=== PATIENT | female | born 1960 | race African-American/Black ===

== ENCOUNTER 2017-02-02 21:39 | Emergency (ER) | payer MEDICARE ==
[~2017-02-02] VITALS: Ht 175.3 cm; Wt 119.5 kg
[~2017-02-02 21:39] MED LIST: ACTOS 15MG TAB15 MG PO; AMBIEN 10MG10 MG PO; BENZTROPINE1 MG PO; CEFTIN 250250 MG/TAB PO; COGENTIN 1MG1 MG/TAB PO; DIABETA 5MG5 MG/TAB PO; FLUPHENAZINE HYD PO; FLUPHENAZINE IM; FOLIC ACID PO; FORTAMET1000 MG PO; GLUCOPHAGE500 MG/TAB PO; HALDOL 5MG T5 MG/TAB PO; INSULIN ASPART SQ; INVEGA3 MG PO; JANUMET 1000 MG1 TA1 PO; LAMISIL250 MG PO; LASIX20 MG PO; LEVAQUIN500 MG PO; LIPITOR40 MG PO; MVI PO; NAVANE PO; NOVALOG FLEX PEN SQ; POTASSIUM CH2 MEQ/ML PO; PRAVACHOL 40MG40 MG PO; PRINIVIL5 MG PO; PROZAC 20MG20 MG PO; RISPERDAL CONSTA IM; RISPERDAL3 MG PO; SAPHRIS10 MG SL; SEROQUEL100 MG PO; SEROQUEL300 MG PO; TRAZODONE HCL100 MG PO; UNABLE; VASOTEC 2.2.5 MG/TAB PO; VISTARIL 2525 MG/CAP PO; ZITHROMAX500 M2 PO; ZOCOR 20MG20 MG PO; ZOFRAN ODT4 MG PO; ZOLOFT100 MG PO
[2017-02-02 22:06] VITALS: TEMP 98.3
[2017-02-03 00:10] LABS: BASO % 0.6 % (0.0-2.0); EOS # 0.3 (0.0-0.7); EOS % 3.6 % (0-4.0); GRAN % 56.7 % (42.2-75.2); HEMATOCRIT 31.4 % (37.0-47.0); HEMOGLOBIN 10.6 g/dl (12.5-16.0); LYMPH # 2.2 (1.2-3.4); LYMPH % 30.7 % (20.0-51.0); MEAN CELL VOLUME 84 fl (80.0-100.0); MEAN CORPUSCULAR HEMOGLOBIN 28 pg (27.0-31.0); MEAN CORPUSCULAR HGB CONC 34 g/dl (33.0-37.0); MEAN PLATELET VOLUME 11.3 fl (7.4-10.4); MONO # 0.6 (0.1-0.6); MONO % 8.3 % (1.7-9.3); PLATELET COUNT 266 K/mm3 (130-400); RED BLOOD COUNT 3.74 M/mm3 (4.10-5.30); REDCELL DISTRIBUTION WIDTH-CV 12.3 % (11.5-14.5)
[2017-02-03 00:20] LABS: ADJUSTED CALCIUM 9.6 mg/dL (8.4-10.2); BILIRUBIN,TOTAL 0.4 mg/dL (0.0-1.0); CALCIUM 9.6 mg/dL (8.4-10.2); CREATININE, serum 1.36 mg/dL (0.52-1.25); MAGNESIUM 1.7 mg/dL (1.6-2.3); PHOSPHOROUS 4.3 mg/dL (2.5-4.5); POTASSIUM 4.8 mmol/L (3.4-5.0); TOTAL PROTEIN 7.3 gm/dL (6.4-8.2)
[2017-02-03 01:56] VITALS: BP 172/90; PULSE 92
== END 2017-02-03 02:15 | disposition home or self-care (01) ==
LOC: COL.ER 21:39
PROVIDERS: Emergency Medicine
DX: E11.40 Type 2 diabetes mellitus with diabetic neuropathy, unspecified (principal); E11.43 Type 2 diabetes mellitus with diabetic autonomic (poly)neuropathy; E11.65 Type 2 diabetes mellitus with hyperglycemia; K31.84 Gastroparesis; M79.605 Pain in left leg; M79.604 Pain in right leg; Z79.84 Long term (current) use of oral hypoglycemic drugs; F20.9 Schizophrenia, unspecified
CPT/HCPCS: J1170; J1815; J2405; J7030

== ENCOUNTER 2017-05-24 17:28 | Emergency (ER) | payer MEDICARE ==
[~2017-05-24] VITALS: Ht 175.3 cm; Wt 111.4 kg
[2017-05-24 17:46] VITALS: TEMP 99.2
[2017-05-24 18:22] LABS: COLLECTION METHOD CLEAN CATCH
[2017-05-24 18:47] LABS: PH 6 (5-8); SQUAMOUS EPITHELIAL 0-2 /hpf; URINE APPEARANCE Clear; URINE BACTERIA None Seen /hpf; URINE BILIRUBIN Negative (NEGATIVE); URINE BLOOD 2+ (NEGATIVE); URINE COLOR Colorless; URINE GLUCOSE 3+ (NEGATIVE); URINE KETONE Negative (NEGATIVE); URINE LEUKOCYTE ESTERASE 2+ (NEGATIVE); URINE PROTEIN(semi-quant) 1+ (NEGATIVE); URINE UROBILINOGEN Negative (NEGATIVE)
[2017-05-24 18:48] LABS: URINE WBC 20-50 /hpf
[2017-05-24] MEDS ORDERED: PYRIDIUM200 M1 PO (18:54)
[2017-05-24] MEDS ORDERED: CEFTIN500 MG PO (18:54)
[2017-05-24 19:10] VITALS: BP 138/71; PULSE 94
== END 2017-05-24 19:10 | disposition home or self-care (01) ==
LOC: COL.ER 17:28
PROVIDERS: Emergency Medicine
DX: N39.0 Urinary tract infection, site not specified (principal); I10 Essential (primary) hypertension; E11.9 Type 2 diabetes mellitus without complications; F20.9 Schizophrenia, unspecified; F17.210 Nicotine dependence, cigarettes, uncomplicated; Z98.51 Tubal ligation status

== ENCOUNTER → 2017-08-20 | Outpatient (CLI) | payer MEDICARE ==
[~2017-08-20] MED LIST changes: +CEFTIN500 MG PO; +PYRIDIUM200 M1 PO
== END ==
LOC: SUN.DIA 12:54
DX: E11.9 Type 2 diabetes mellitus without complications (principal); E66.9 Obesity, unspecified; Z68.37 Body mass index [BMI] 37.0-37.9, adult; Z71.3 Dietary counseling and surveillance; F17.220 Nicotine dependence, chewing tobacco, uncomplicated
CPT/HCPCS: G0108

== ENCOUNTER 2017-10-06 22:47 | Emergency (ER) | payer MEDICARE ==
[~2017-10-06] VITALS: Ht 175.3 cm; Wt 115.0 kg
[2017-10-06 22:50] VITALS: TEMP 97.5
[2017-10-06 23:11] LABS: BASO % 0.5 % (0.0-2.0); EOS # 0.2 (0.0-0.7); EOS % 2.7 % (0-4.0); GRAN # 4.5 (1.4-6.5); GRAN % 58.9 % (42.2-75.2); LYMPH # 2.2 (1.2-3.4); MEAN CELL VOLUME 83 fl (80.0-100.0); MEAN CORPUSCULAR HGB CONC 34 g/dl (33.0-37.0); MEAN PLATELET VOLUME 11.2 fl (7.4-10.4); MONO # 0.7 (0.1-0.6); MONO % 8.8 % (1.7-9.3); PLATELET COUNT 242 K/mm3 (130-400); RED BLOOD COUNT 3.43 M/mm3 (4.10-5.30); REDCELL DISTRIBUTION WIDTH-CV 12.4 % (11.5-14.5)
[2017-10-06 23:12] LABS: HEMATOCRIT 28.4 % (37.0-47.0); HEMOGLOBIN 9.5 g/dl (12.5-16.0); MEAN CORPUSCULAR HEMOGLOBIN 28 pg (27.0-31.0)
[2017-10-06 23:24] LABS: ACETONE,SERUM NEGATIVE; ALANINE AMINOTRANSFERASE 29 U/L (9-52); ALBUMIN 3.2 gm/dL (3.5-5.0); ALKALINE PHOSPHATASE 75 U/L (50-136); ANION GAP 12 mmol/L (7-16); AST,SGOT 15 U/L (15-37); BILIRUBIN,TOTAL 0.2 mg/dL (0.0-1.0); BLOOD UREA NITROGEN 15 mg/dL (7-17); CALCIUM 8.2 mg/dL (8.4-10.2); CARBON DIOXIDE 23 mmol/L (22-30); CHLORIDE 102 mmol/L (98-107); CREATININE, serum 1.05 mg/dL (0.52-1.25); GLUCOSE 356 mg/dL (74-106); POTASSIUM 3.2 mmol/L (3.4-5.0); SODIUM 136 mmol/L (137-145); TOTAL PROTEIN 6.3 gm/dL (6.4-8.2)
[2017-10-07] MEDS ORDERED: LATUDA20 MG PO (00:10)
[2017-10-07 00:28] VITALS: BP 154/90; PULSE 91
== END 2017-10-07 00:30 | disposition home or self-care (01) ==
LOC: COL.ER 22:47
PROVIDERS: Emergency Medicine
DX: E11.9 Type 2 diabetes mellitus without complications (principal); R21 Rash and other nonspecific skin eruption; I10 Essential (primary) hypertension; F20.9 Schizophrenia, unspecified; F17.210 Nicotine dependence, cigarettes, uncomplicated; Z91.19 Patient's noncompliance with other medical treatment and regimen; Z79.84 Long term (current) use of oral hypoglycemic drugs
CPT/HCPCS: J1200; J2550; J7030

== ENCOUNTER 2017-10-21 22:26 | Emergency (ER) | payer MEDICARE ==
[~2017-10-21] VITALS: Ht 175.3 cm; Wt 113.6 kg
[~2017-10-21 22:26] MED LIST changes: +LATUDA20 MG PO
[2017-10-21 22:56] VITALS: TEMP 98.2
[2017-10-21] MEDS ORDERED: ABILIFY2 MG PO (22:59)
[2017-10-21 23:34] LABS: BASO % 0.3 % (0.0-2.0); EOS # 0.3 (0.0-0.7); EOS % 2.6 % (0-4.0); GRAN # 6.6 (1.4-6.5); LYMPH % 20.5 % (20.0-51.0); MEAN CELL VOLUME 82 fl (80.0-100.0); MEAN CORPUSCULAR HGB CONC 34 g/dl (33.0-37.0); MEAN PLATELET VOLUME 11.2 fl (7.4-10.4); MONO # 0.8 (0.1-0.6); MONO % 8.4 % (1.7-9.3); PLATELET COUNT 282 K/mm3 (130-400); RED BLOOD COUNT 3.46 M/mm3 (4.10-5.30); REDCELL DISTRIBUTION WIDTH-CV 12.8 % (11.5-14.5)
[2017-10-21 23:35] LABS: HEMATOCRIT 28.3 % (37.0-47.0); HEMOGLOBIN 9.5 g/dl (12.5-16.0); MEAN CORPUSCULAR HEMOGLOBIN 27 pg (27.0-31.0)
[2017-10-21 23:44] LABS: ALANINE AMINOTRANSFERASE 35 U/L (9-52); ALBUMIN 3.3 gm/dL (3.5-5.0); ALKALINE PHOSPHATASE 84 U/L (50-136); ANION GAP 12 mmol/L (7-16); AST,SGOT 22 U/L (15-37); BILIRUBIN,TOTAL 0.2 mg/dL (0.0-1.0); BLOOD UREA NITROGEN 11 mg/dL (7-17); CALCIUM 8.6 mg/dL (8.4-10.2); CARBON DIOXIDE 25 mmol/L (22-30); CHLORIDE 101 mmol/L (98-107); CREATININE, serum 1.06 mg/dL (0.52-1.25); GLUCOSE 327 mg/dL (74-106); LIPASE 48 U/L (23-300); MAGNESIUM 1.7 mg/dL (1.6-2.3); PHOSPHOROUS 3.4 mg/dL (2.5-4.5); POTASSIUM 3.5 mmol/L (3.4-5.0); SODIUM 138 mmol/L (137-145); TOTAL PROTEIN 6.6 gm/dL (6.4-8.2)
[2017-10-21 23:45] LABS: ACETAMINOPHEN < 10 ug/mL (10-30); ALCOHOL(ethanol),MEDICAL < 10 mg/dL; SALICYLATE < 1.0 mg/dL
[2017-10-22 00:34] LABS: COLLECTION METHOD CLEAN CATCH
[2017-10-22 00:41] LABS: PH 6 (5-8); SQUAMOUS EPITHELIAL 0-2 /hpf; URINE APPEARANCE Clear; URINE BACTERIA None Seen /hpf; URINE BILIRUBIN Negative (NEGATIVE); URINE BLOOD 1+ (NEGATIVE); URINE COLOR Straw; URINE GLUCOSE 3+ (NEGATIVE); URINE KETONE Negative (NEGATIVE); URINE LEUKOCYTE ESTERASE 1+ (NEGATIVE); URINE NITRATE Negative (NEGATIVE); URINE PROTEIN(semi-quant) 2+ (NEGATIVE); URINE RBC 0-2 /hpf; URINE UROBILINOGEN Negative (NEGATIVE)
[2017-10-22 01:13] VITALS: BP 179/97; PULSE 94
[2017-10-23] MEDS ORDERED: PRINIVIL40 MG PO (01:15)
[2017-10-23] MEDS ORDERED: GLUCOTROL 5M5 MG/TAB PO (01:15)
[2017-10-23] MEDS ORDERED: ZITHROMAX Z PA250 MG PO (03:55)
[2017-10-23] MEDS ORDERED: PREDNISONE20 MG PO ×2 (20:25→20:31)
== END 2017-10-22 01:15 | disposition home or self-care (01) ==
LOC: COL.ER 22:26
PROVIDERS: Emergency Medicine
DX: F20.9 Schizophrenia, unspecified (principal); R51 Headache; E11.9 Type 2 diabetes mellitus without complications; F17.220 Nicotine dependence, chewing tobacco, uncomplicated; Z98.51 Tubal ligation status
CPT/HCPCS: J1200; J1630

== ENCOUNTER 2017-10-23 00:14 | Emergency (ER) | payer MEDICARE ==
[~2017-10-23] VITALS: Ht 175.3 cm; Wt 113.6 kg
[~2017-10-23 00:14] MED LIST changes: +ABILIFY2 MG PO
[2017-10-23 00:15] VITALS: TEMP 98.5
[2017-10-23 00:40] LABS: BASO % 0.3 % (0.0-2.0); EOS # 0.2 (0.0-0.7); EOS % 2.6 % (0-4.0); GRAN # 5.7 (1.4-6.5); HEMATOCRIT 25.6 % (37.0-47.0); HEMOGLOBIN 8.5 g/dl (12.5-16.0); LYMPH # 1.8 (1.2-3.4); LYMPH % 20.7 % (20.0-51.0); MEAN CELL VOLUME 83 fl (80.0-100.0); MEAN CORPUSCULAR HEMOGLOBIN 28 pg (27.0-31.0); MEAN CORPUSCULAR HGB CONC 33 g/dl (33.0-37.0); MEAN PLATELET VOLUME 10.9 fl (7.4-10.4); MONO # 0.9 (0.1-0.6); MONO % 10.1 % (1.7-9.3); PLATELET COUNT 265 K/mm3 (130-400); RED BLOOD COUNT 3.09 M/mm3 (4.10-5.30); REDCELL DISTRIBUTION WIDTH-CV 12.7 % (11.5-14.5)
[2017-10-23 00:50] LABS: ALANINE AMINOTRANSFERASE 36 U/L (9-52); ALKALINE PHOSPHATASE 82 U/L (50-136); ANION GAP 13 mmol/L (7-16); AST,SGOT 17 U/L (15-37); BILIRUBIN,TOTAL 0.3 mg/dL (0.0-1.0); BLOOD UREA NITROGEN 8 mg/dL (7-17); CALCIUM 8.2 mg/dL (8.4-10.2); CARBON DIOXIDE 24 mmol/L (22-30); CHLORIDE 102 mmol/L (98-107); CREATININE, serum 1.05 mg/dL (0.52-1.25); GLUCOSE 332 mg/dL (74-106); POTASSIUM 3.4 mmol/L (3.4-5.0); SODIUM 140 mmol/L (137-145); TOTAL PROTEIN 6.1 gm/dL (6.4-8.2)
[2017-10-23 01:08] LABS: LIPASE 25 U/L (23-300)
[2017-10-23 01:09] LABS: ACETONE,SERUM NEGATIVE
[2017-10-23] MEDS ORDERED: PRINIVIL40 MG PO (01:15)
[2017-10-23] MEDS ORDERED: GLUCOTROL 5M5 MG/TAB PO (01:15)
[2017-10-23] MEDS ORDERED: ZITHROMAX Z PA250 MG PO (03:55)
[2017-10-23 04:17] VITALS: BP 143/82; PULSE 80
[2017-10-23] MEDS ORDERED: PREDNISONE20 MG PO ×2 (20:25→20:31)
== END 2017-10-23 04:24 | disposition home or self-care (01) ==
LOC: COL.ER 00:14
PROVIDERS: Emergency Medicine
DX: G89.29 Other chronic pain (principal); R51 Headache; R10.84 Generalized abdominal pain; R05 Cough; E11.9 Type 2 diabetes mellitus without complications; I10 Essential (primary) hypertension; F20.9 Schizophrenia, unspecified; Z79.84 Long term (current) use of oral hypoglycemic drugs
CPT/HCPCS: J1630; J2405; J7030

== ENCOUNTER 2017-10-23 18:55 | Emergency (ER) | payer MEDICARE ==
[~2017-10-23] VITALS: Ht 175.3 cm; Wt 113.6 kg
[~2017-10-23 18:55] MED LIST changes: +GLUCOTROL 5M5 MG/TAB PO; +PRINIVIL40 MG PO; +ZITHROMAX Z PA250 MG PO
[2017-10-23 18:58] VITALS: BP 169/93; TEMP 99.2
[2017-10-23 19:30] LABS: BASO % 0.4 % (0.0-2.0); EOS # 0.3 (0.0-0.7); EOS % 2.5 % (0-4.0); GRAN % 68.4 % (42.2-75.2); LYMPH # 1.8 (1.2-3.4); LYMPH % 17.7 % (20.0-51.0); MEAN CELL VOLUME 83 fl (80.0-100.0); MEAN CORPUSCULAR HGB CONC 33 g/dl (33.0-37.0); MEAN PLATELET VOLUME 11.3 fl (7.4-10.4); MONO # 1.1 (0.1-0.6); MONO % 10.7 % (1.7-9.3); PLATELET COUNT 274 K/mm3 (130-400); RED BLOOD COUNT 3.32 M/mm3 (4.10-5.30); REDCELL DISTRIBUTION WIDTH-CV 12.7 % (11.5-14.5)
[2017-10-23 19:34] LABS: COLLECTION METHOD CLEAN CATCH
[2017-10-23 19:35] LABS: ACETONE,SERUM NEGATIVE
[2017-10-23 19:44] LABS: ALANINE AMINOTRANSFERASE 46 U/L (9-52); ALBUMIN 3.2 gm/dL (3.5-5.0); ALKALINE PHOSPHATASE 108 U/L (50-136); ANION GAP 9 mmol/L (7-16); AST,SGOT 32 U/L (15-37); BILIRUBIN,TOTAL 0.4 mg/dL (0.0-1.0); BLOOD UREA NITROGEN 9 mg/dL (7-17); C-REACTIVE PROTEIN 4.6 mg/dL (0.0-0.9); CALCIUM 8.1 mg/dL (8.4-10.2); CARBON DIOXIDE 25 mmol/L (22-30); CHLORIDE 101 mmol/L (98-107); CREATININE, serum 1.13 mg/dL (0.52-1.25); GLUCOSE 277 mg/dL (74-106); POTASSIUM 3.7 mmol/L (3.4-5.0); SODIUM 135 mmol/L (137-145); TOTAL PROTEIN 6.4 gm/dL (6.4-8.2)
[2017-10-23 19:48] LABS: HEMATOCRIT 27.7 % (37.0-47.0); HEMOGLOBIN 9.1 g/dl (12.5-16.0); MEAN CORPUSCULAR HEMOGLOBIN 27 pg (27.0-31.0)
[2017-10-23 19:49] LABS: PH 6 (5-8); SQUAMOUS EPITHELIAL 0-2 /hpf; URINE APPEARANCE Clear; URINE BACTERIA Rare /hpf; URINE BILIRUBIN Negative (NEGATIVE); URINE BLOOD 1+ (NEGATIVE); URINE COLOR Straw; URINE GLUCOSE 3+ (NEGATIVE); URINE KETONE Negative (NEGATIVE); URINE LEUKOCYTE ESTERASE 1+ (NEGATIVE); URINE NITRATE Negative (NEGATIVE); URINE PROTEIN(semi-quant) 2+ (NEGATIVE); URINE RBC 0-2 /hpf; URINE UROBILINOGEN Negative (NEGATIVE)
[2017-10-23 20:01] LABS: TROPONIN-I < 0.012 ng/mL (0.000-0.034)
[2017-10-23 20:09] LABS: ERYTHROCYTE SEDIMENTATION RATE 67 mm/hr (0-30)
[2017-10-23] MEDS ORDERED: PREDNISONE20 MG PO ×2 (20:25→20:31)
[2017-10-23 20:52] VITALS: PULSE 92
== END 2017-10-23 20:51 | disposition home or self-care (01) ==
LOC: COL.ER 18:55
PROVIDERS: Emergency Medicine
DX: R51 Headache (principal); R70.0 Elevated erythrocyte sedimentation rate; E11.9 Type 2 diabetes mellitus without complications; I10 Essential (primary) hypertension; F17.210 Nicotine dependence, cigarettes, uncomplicated; F20.9 Schizophrenia, unspecified; Z79.84 Long term (current) use of oral hypoglycemic drugs
CPT/HCPCS: J1200; J1630; J1815; J7030; J7512

== ENCOUNTER 2017-11-07 13:42 | Emergency (ER) | payer MEDICARE ==
[~2017-11-07] VITALS: Ht 175.3 cm; Wt 113.6 kg
[~2017-11-07 13:42] MED LIST changes: +PREDNISONE20 MG PO
[2017-11-07 13:45] VITALS: TEMP 98.2
[2017-11-07] MEDS ORDERED: RISPERDALC37.5 MG/2 IJ (13:59)
[2017-11-07 14:18] LABS: BASO # 0.1 (0.0-0.2); BASO % 0.5 % (0.0-2.0); EOS # 0.3 (0.0-0.7); EOS % 2.8 % (0-4.0); GRAN # 6.8 (1.4-6.5); GRAN % 70.9 % (42.2-75.2); HEMATOCRIT 30.4 % (37.0-47.0); LYMPH # 1.9 (1.2-3.4); LYMPH % 19.3 % (20.0-51.0); MEAN CELL VOLUME 84 fl (80.0-100.0); MEAN CORPUSCULAR HEMOGLOBIN 28 pg (27.0-31.0); MEAN CORPUSCULAR HGB CONC 33 g/dl (33.0-37.0); MEAN PLATELET VOLUME 10.1 fl (7.4-10.4); MONO # 0.6 (0.1-0.6); MONO % 6.2 % (1.7-9.3); PLATELET COUNT 338 K/mm3 (130-400); RED BLOOD COUNT 3.63 M/mm3 (4.10-5.30); REDCELL DISTRIBUTION WIDTH-CV 13.2 % (11.5-14.5)
[2017-11-07 14:27] LABS: ALBUMIN 3.4 gm/dL (3.5-5.0); BILIRUBIN,TOTAL 0.2 mg/dL (0.0-1.0); CALCIUM 8.1 mg/dL (8.4-10.2); CREATININE, serum 1.05 mg/dL (0.52-1.25); POTASSIUM 3.5 mmol/L (3.4-5.0); TOTAL PROTEIN 6.8 gm/dL (6.4-8.2)
[2017-11-07 14:45] VITALS: BP 194/106; PULSE 91
[2017-11-07] MEDS ORDERED: LASIX 20MG TABL20 MG PO (14:53)
[2017-11-07] MEDS ORDERED: K-DUR 10 MEQ T10 MEQ PO (14:53)
[2017-11-08] MEDS ORDERED: ZITHROMAX 250M250 MG PO (02:37)
== END 2017-11-07 14:55 | disposition left against medical advice (07) ==
LOC: COL.ER 13:42
PROVIDERS: Nurse Practitioner Primary Care
DX: R06.02 Shortness of breath (principal); R60.9 Edema, unspecified; E11.9 Type 2 diabetes mellitus without complications; I10 Essential (primary) hypertension; F20.9 Schizophrenia, unspecified; Z98.51 Tubal ligation status; Z79.84 Long term (current) use of oral hypoglycemic drugs

== ENCOUNTER 2017-11-08 00:27 | Emergency (ER) | payer MEDICARE ==
[~2017-11-08] VITALS: Ht 175.3 cm; Wt 113.6 kg
[~2017-11-08 00:27] MED LIST changes: +K-DUR 10 MEQ T10 MEQ PO; +LASIX 20MG TABL20 MG PO; +RISPERDALC37.5 MG/2 IJ
[2017-11-08 00:28] VITALS: TEMP 98.3
[2017-11-08 01:07] LABS: COLLECTION METHOD CLEAN CATCH
[2017-11-08 01:13] LABS: PH 7 (5-8); SQUAMOUS EPITHELIAL 0-2 /hpf; URINE APPEARANCE Clear; URINE BACTERIA None Seen /hpf; URINE BILIRUBIN Negative (NEGATIVE); URINE BLOOD 1+ (NEGATIVE); URINE COLOR Straw; URINE GLUCOSE 3+ (NEGATIVE); URINE KETONE Negative (NEGATIVE); URINE LEUKOCYTE ESTERASE Trace (NEGATIVE); URINE NITRATE Negative (NEGATIVE); URINE PROTEIN(semi-quant) 3+ (NEGATIVE); URINE RBC 0-2 /hpf; URINE UROBILINOGEN Negative (NEGATIVE)
[2017-11-08 01:18] LABS: BASO % 0.4 % (0.0-2.0); EOS # 0.2 (0.0-0.7); EOS % 2.6 % (0-4.0); GRAN # 6.6 (1.4-6.5); GRAN % 70.1 % (42.2-75.2); LYMPH # 1.9 (1.2-3.4); LYMPH % 20.3 % (20.0-51.0); MEAN CELL VOLUME 83 fl (80.0-100.0); MEAN CORPUSCULAR HGB CONC 33 g/dl (33.0-37.0); MONO # 0.6 (0.1-0.6); MONO % 6.5 % (1.7-9.3); PLATELET COUNT 329 K/mm3 (130-400); RED BLOOD COUNT 3.57 M/mm3 (4.10-5.30); REDCELL DISTRIBUTION WIDTH-CV 13.2 % (11.5-14.5)
[2017-11-08 01:19] LABS: HEMATOCRIT 29.6 % (37.0-47.0); HEMOGLOBIN 9.8 g/dl (12.5-16.0); MEAN CORPUSCULAR HEMOGLOBIN 27 pg (27.0-31.0)
[2017-11-08 01:20] LABS: TRICYCLIC ANTIDEPRESS URINE NEGATIVE
[2017-11-08 01:28] LABS: ALANINE AMINOTRANSFERASE 36 U/L (9-52); ALBUMIN 3.3 gm/dL (3.5-5.0); ALKALINE PHOSPHATASE 94 U/L (50-136); ANION GAP 11 mmol/L (7-16); AST,SGOT 28 U/L (15-37); BILIRUBIN,TOTAL 0.2 mg/dL (0.0-1.0); BLOOD UREA NITROGEN 9 mg/dL (7-17); CALCIUM 8.2 mg/dL (8.4-10.2); CARBON DIOXIDE 25 mmol/L (22-30); CHLORIDE 107 mmol/L (98-107); CREATININE, serum 1.03 mg/dL (0.52-1.25); GLUCOSE 311 mg/dL (74-106); POTASSIUM 3.5 mmol/L (3.4-5.0); SODIUM 142 mmol/L (137-145); TOTAL PROTEIN 6.6 gm/dL (6.4-8.2)
[2017-11-08 01:29] LABS: ACETAMINOPHEN < 10 ug/mL (10-30); ALCOHOL(ethanol),MEDICAL < 10 mg/dL; SALICYLATE < 1.0 mg/dL
[2017-11-08 01:50] LABS: TROPONIN-I < 0.012 ng/mL (0.000-0.034)
[2017-11-08] MEDS ORDERED: ZITHROMAX 250M250 MG PO (02:37)
[2017-11-08 02:45] VITALS: BP 162/95
[2017-11-08 03:33] VITALS: PULSE 89
[2017-11-09] MEDS ORDERED: LASIX 20MG TABL20 MG PO (19:45)
[2017-11-09] MEDS ORDERED: K-DUR 10 MEQ T10 MEQ PO (19:45)
== END 2017-11-08 03:33 | disposition home or self-care (01) ==
LOC: COL.ER 00:27
PROVIDERS: Emergency Medicine
DX: J20.9 Acute bronchitis, unspecified (principal); F17.220 Nicotine dependence, chewing tobacco, uncomplicated; Z86.59 Personal history of other mental and behavioral disorders

== ENCOUNTER 2017-11-09 18:45 | Emergency (ER) | payer MEDICARE ==
[~2017-11-09] VITALS: Ht 175.3 cm; Wt 113.6 kg
[~2017-11-09 18:45] MED LIST changes: +ZITHROMAX 250M250 MG PO
[2017-11-09 18:47] VITALS: TEMP 98.4
[2017-11-09] MEDS ORDERED: K-DUR 10 MEQ T10 MEQ PO (19:45)
[2017-11-09] MEDS ORDERED: LASIX 20MG TABL20 MG PO (19:45)
[2017-11-09 21:05] VITALS: BP 158/86; PULSE 80
== END 2017-11-09 21:15 | disposition home or self-care (01) ==
LOC: COL.ER 18:45
DX: R51 Headache (principal); I10 Essential (primary) hypertension; E11.9 Type 2 diabetes mellitus without complications
CPT/HCPCS: J1200; J1630; J1885

== ENCOUNTER 2017-11-20 01:25 | Emergency (ER) | payer MEDICARE ==
[~2017-11-20] VITALS: Ht 175.3 cm; Wt 109.1 kg
[2017-11-20 01:29] VITALS: TEMP 97.5
[2017-11-20 02:00] LABS: ARTERIAL BLD GAS O2 SATURATION 91.9 % (92-100); ARTERIAL BLD GAS TCO2 CT 27.9; ARTERIAL BLOOD GAS BASE EXCESS 2.8 (-2-2); ARTERIAL BLOOD GAS HCO3 26.7 meq/L (22-26); ARTERIAL BLOOD GAS PCO2 38.5 mmHg (35-45); ARTERIAL BLOOD GAS PO2 62.3 mmHg (80-100); ARTERIAL BLOOD GAS pH 7.46 (7.35-7.45)
[2017-11-20] MEDS ORDERED: GLUCOTROL 5M5 MG/TAB (02:38)
[2017-11-20 04:36] VITALS: BP 139/80; PULSE 86
== END 2017-11-20 04:36 | disposition home or self-care (01) ==
LOC: COL.ER 01:25
PROVIDERS: Emergency Medicine
DX: J40 Bronchitis, not specified as acute or chronic (principal); F99 Mental disorder, not otherwise specified; E11.9 Type 2 diabetes mellitus without complications; F20.9 Schizophrenia, unspecified; Z98.51 Tubal ligation status; Z79.84 Long term (current) use of oral hypoglycemic drugs
CPT/HCPCS: J1630; J7030

== ENCOUNTER 2017-12-04 20:42 | Emergency (ER) | payer MEDICARE ==
[~2017-12-04] VITALS: Ht 175.3 cm; Wt 107.7 kg
[~2017-12-04 20:42] MED LIST changes: +GLUCOTROL 5M5 MG/TAB
[2017-12-04 20:46] VITALS: TEMP 98.4
[2017-12-04 21:09] LABS: BASO % 0.4 % (0.0-2.0); EOS # 0.2 (0.0-0.7); EOS % 2.5 % (0-4.0); GRAN % 65.9 % (42.2-75.2); LYMPH # 2.2 (1.2-3.4); LYMPH % 24.5 % (20.0-51.0); MEAN CELL VOLUME 81 fl (80.0-100.0); MEAN CORPUSCULAR HGB CONC 33 g/dl (33.0-37.0); MEAN PLATELET VOLUME 10.8 fl (7.4-10.4); MONO # 0.6 (0.1-0.6); MONO % 6.5 % (1.7-9.3); PLATELET COUNT 293 K/mm3 (130-400); RED BLOOD COUNT 3.55 M/mm3 (4.10-5.30); REDCELL DISTRIBUTION WIDTH-CV 12.8 % (11.5-14.5)
[2017-12-04 21:10] LABS: HEMATOCRIT 28.7 % (37.0-47.0); HEMOGLOBIN 9.6 g/dl (12.5-16.0); MEAN CORPUSCULAR HEMOGLOBIN 27 pg (27.0-31.0)
[2017-12-04 21:13] LABS: INR 1.1 (0.8-3.0); PROTHROMBIN TIME 12.1 SECONDS (9.7-12.8)
[2017-12-04 21:21] LABS: ALANINE AMINOTRANSFERASE 24 U/L (9-52); ALBUMIN 3.1 gm/dL (3.5-5.0); ALKALINE PHOSPHATASE 75 U/L (50-136); ANION GAP 10 mmol/L (7-16); AST,SGOT 11 U/L (15-37); BILIRUBIN,TOTAL 0.3 mg/dL (0.0-1.0); BLOOD UREA NITROGEN 9 mg/dL (7-17); CALCIUM 8.7 mg/dL (8.4-10.2); CARBON DIOXIDE 24 mmol/L (22-30); CHLORIDE 103 mmol/L (98-107); CREATININE, serum 1.09 mg/dL (0.52-1.25); GLUCOSE 289 mg/dL (74-106); POTASSIUM 3.5 mmol/L (3.4-5.0); SODIUM 137 mmol/L (137-145); TOTAL PROTEIN 6.2 gm/dL (6.4-8.2)
[2017-12-04 21:33] LABS: TROPONIN-I < 0.012 ng/mL (0.000-0.034)
[2017-12-04 22:30] VITALS: BP 175/91; PULSE 77
== END 2017-12-04 22:30 | disposition home or self-care (01) ==
LOC: COL.ER 20:42
PROVIDERS: Emergency Medicine
DX: M54.2 Cervicalgia (principal); M25.511 Pain in right shoulder; R06.02 Shortness of breath; R06.00 Dyspnea, unspecified; I11.0 Hypertensive heart disease with heart failure; I50.9 Heart failure, unspecified; E11.9 Type 2 diabetes mellitus without complications; I25.10 Atherosclerotic heart disease of native coronary artery without angina pectoris; F20.9 Schizophrenia, unspecified; Z98.51 Tubal ligation status; Z79.84 Long term (current) use of oral hypoglycemic drugs

== ENCOUNTER 2017-12-26 21:14 | Emergency (ER) | payer MEDICARE ==
[~2017-12-26] VITALS: Ht 175.3 cm; Wt 108.2 kg
[2017-12-26] MEDS ORDERED: GLUCOTROL 5M5 MG/TAB PO (21:29)
[2017-12-26] MEDS ORDERED: HALDOL 5MG T5 MG/TAB PO (21:30)
[2017-12-26] MEDS ORDERED: ZESTRIL40 MG PO (21:30)
[2017-12-26] MEDS ORDERED: DESYREL 100MG100 MG PO (21:31)
[2017-12-26 21:38] LABS: BASO % 0.3 % (0.0-2.0); EOS # 0.2 (0.0-0.7); EOS % 2.4 % (0-4.0); GRAN # 5.8 (1.4-6.5); GRAN % 66.6 % (42.2-75.2); HEMOGLOBIN 10.7 g/dl (12.5-16.0); LYMPH # 2.1 (1.2-3.4); LYMPH % 23.6 % (20.0-51.0); MEAN CELL VOLUME 79 fl (80.0-100.0); MEAN CORPUSCULAR HEMOGLOBIN 26 pg (27.0-31.0); MEAN CORPUSCULAR HGB CONC 33 g/dl (33.0-37.0); MEAN PLATELET VOLUME 10.7 fl (7.4-10.4); MONO # 0.6 (0.1-0.6); MONO % 6.9 % (1.7-9.3); PLATELET COUNT 268 K/mm3 (130-400); RED BLOOD COUNT 4.09 M/mm3 (4.10-5.30); REDCELL DISTRIBUTION WIDTH-CV 13.1 % (11.5-14.5)
[2017-12-26 21:39] LABS: HEMATOCRIT 32.2 % (37.0-47.0)
[2017-12-26 21:49] LABS: ALANINE AMINOTRANSFERASE 25 U/L (9-52); ALBUMIN 3.3 gm/dL (3.5-5.0); ALKALINE PHOSPHATASE 68 U/L (50-136); ANION GAP 9 mmol/L (7-16); AST,SGOT 13 U/L (15-37); BILIRUBIN,TOTAL 0.4 mg/dL (0.0-1.0); BLOOD UREA NITROGEN 10 mg/dL (7-17); CALCIUM 8.9 mg/dL (8.4-10.2); CARBON DIOXIDE 27 mmol/L (22-30); CHLORIDE 101 mmol/L (98-107); CREATININE, serum 1.04 mg/dL (0.52-1.25); GLUCOSE 128 mg/dL (74-106); MAGNESIUM 1.4 mg/dL (1.6-2.3); PHOSPHOROUS 4.4 mg/dL (2.5-4.5); POTASSIUM 3.1 mmol/L (3.4-5.0); SODIUM 138 mmol/L (137-145)
[2017-12-26 21:56] LABS: ACETAMINOPHEN < 10 ug/mL (10-30); ALCOHOL(ethanol),MEDICAL < 10 mg/dL; SALICYLATE < 1.0 mg/dL
[2017-12-26 22:10] LABS: TRICYCLIC ANTIDEPRESS URINE NEGATIVE
[2017-12-27 03:50] VITALS: BP 153/93; PULSE 90
== END 2017-12-27 04:15 | disposition home or self-care (01) ==
LOC: COL.ER 21:14
PROVIDERS: Emergency Medicine
DX: T43.212A Poisoning by selective serotonin and norepinephrine reuptake inhibitors, intentional self-harm, initial encounter (principal); T43.4X2A Poisoning by butyrophenone and thiothixene neuroleptics, intentional self-harm, initial encounter; F20.9 Schizophrenia, unspecified; F29 Unspecified psychosis not due to a substance or known physiological condition; E11.9 Type 2 diabetes mellitus without complications; F17.210 Nicotine dependence, cigarettes, uncomplicated; Z79.84 Long term (current) use of oral hypoglycemic drugs
CPT/HCPCS: J3475

== ENCOUNTER 2018-01-08 03:33 | Emergency (ER) | payer MEDICARE, MEDICAID ==
[~2018-01-08] VITALS: Ht 175.3 cm; Wt 108.2 kg
[~2018-01-08 03:33] MED LIST changes: +DESYREL 100MG100 MG PO; +ZESTRIL40 MG PO
[2018-01-08 03:37] VITALS: BP 170/97; TEMP 98.4
[2018-01-08] MEDS ORDERED: DOXYCYCLINE 10100 MG PO (04:01)
[2018-01-08 04:44] VITALS: PULSE 103
[2018-01-09] MEDS ORDERED: TUSS PO (22:44)
== END 2018-01-08 04:44 | disposition home or self-care (01) ==
LOC: COL.ER 03:33
DX: J40 Bronchitis, not specified as acute or chronic (principal); E11.9 Type 2 diabetes mellitus without complications; I10 Essential (primary) hypertension; F20.9 Schizophrenia, unspecified; Z79.84 Long term (current) use of oral hypoglycemic drugs

== ENCOUNTER 2018-01-09 22:36 | Emergency (ER) | payer MEDICARE, MEDICAID ==
[~2018-01-09] VITALS: Ht 175.3 cm; Wt 108.6 kg
[~2018-01-09 22:36] MED LIST changes: +DOXYCYCLINE 10100 MG PO
[2018-01-09 22:37] VITALS: BP 171/109; PULSE 88; TEMP 98.3
[2018-01-09] MEDS ORDERED: TUSS PO (22:44)
== END 2018-01-09 23:04 | disposition home or self-care (01) ==
LOC: COL.ER 22:36
DX: R05 Cough (principal)

== ENCOUNTER 2018-02-06 08:13 | Emergency (ER) | payer MEDICARE, MEDICAID ==
[~2018-02-06] VITALS: Ht 175.3 cm; Wt 102.7 kg
[~2018-02-06 08:13] MED LIST changes: +TUSS PO
[2018-02-06 08:45] LABS: BASO % 0.2 % (0.0-2.0); EOS # 0.3 (0.0-0.7); EOS % 3.2 % (0-4.0); GRAN # 5.9 (1.4-6.5); GRAN % 68.9 % (42.2-75.2); HEMOGLOBIN 9.6 g/dl (12.5-16.0); LYMPH # 1.7 (1.2-3.4); MEAN CELL VOLUME 80 fl (80.0-100.0); MEAN CORPUSCULAR HEMOGLOBIN 26 pg (27.0-31.0); MEAN CORPUSCULAR HGB CONC 33 g/dl (33.0-37.0); MEAN PLATELET VOLUME 10.7 fl (7.4-10.4); MONO # 0.6 (0.1-0.6); MONO % 7.5 % (1.7-9.3); PLATELET COUNT 270 K/mm3 (130-400); RED BLOOD COUNT 3.64 M/mm3 (4.10-5.30); REDCELL DISTRIBUTION WIDTH-CV 14.4 % (11.5-14.5)
[2018-02-06 08:59] LABS: ALANINE AMINOTRANSFERASE 26 U/L (9-52); ALBUMIN 3.4 gm/dL (3.5-5.0); ALKALINE PHOSPHATASE 82 U/L (50-136); ANION GAP 6 mmol/L (7-16); AST,SGOT 18 U/L (15-37); BILIRUBIN,TOTAL 0.2 mg/dL (0.0-1.0); BLOOD UREA NITROGEN 15 mg/dL (7-17); CALCIUM 8.5 mg/dL (8.4-10.2); CARBON DIOXIDE 26 mmol/L (22-30); CHLORIDE 103 mmol/L (98-107); CREATININE, serum 1.21 mg/dL (0.52-1.25); GLUCOSE 218 mg/dL (74-106); LIPASE 51 U/L (23-300); POTASSIUM 3.9 mmol/L (3.4-5.0); SODIUM 136 mmol/L (137-145); TOTAL PROTEIN 6.5 gm/dL (6.4-8.2)
[2018-02-06 09:02] LABS: ACETAMINOPHEN < 10 ug/mL (10-30); ALCOHOL(ethanol),MEDICAL < 10 mg/dL; SALICYLATE < 1.0 mg/dL
[2018-02-06 09:20] LABS: TROPONIN-I < 0.012 ng/mL (0.000-0.034)
[2018-02-06 11:36] VITALS: BP 175/102; PULSE 100; TEMP 97.2
== END 2018-02-06 11:37 | disposition home or self-care (01) ==
LOC: COL.ER 08:13
PROVIDERS: Emergency Medicine
DX: F41.9 Anxiety disorder, unspecified (principal); F20.9 Schizophrenia, unspecified; I10 Essential (primary) hypertension; E11.9 Type 2 diabetes mellitus without complications; Z98.51 Tubal ligation status; Z98.890 Other specified postprocedural states; Z79.84 Long term (current) use of oral hypoglycemic drugs
CPT/HCPCS: J2060; J7030

== ENCOUNTER 2018-02-06 22:32 | Emergency (ER) | payer MEDICARE, MEDICAID ==
[~2018-02-06] VITALS: Ht 175.3 cm; Wt 102.7 kg
[2018-02-06 22:37] VITALS: TEMP 97.6
[2018-02-06 23:09] LABS: COLLECTION METHOD CLEAN CATCH
[2018-02-06 23:12] LABS: BASO # 0.1 (0.0-0.2); BASO % 0.5 % (0.0-2.0); EOS # 0.3 (0.0-0.7); EOS % 3.4 % (0-4.0); GRAN # 5.8 (1.4-6.5); GRAN % 57.8 % (42.2-75.2); LYMPH # 2.9 (1.2-3.4); LYMPH % 29.4 % (20.0-51.0); MEAN CELL VOLUME 80 fl (80.0-100.0); MEAN CORPUSCULAR HGB CONC 33 g/dl (33.0-37.0); MEAN PLATELET VOLUME 10.8 fl (7.4-10.4); MONO # 0.9 (0.1-0.6); MONO % 8.7 % (1.7-9.3); PLATELET COUNT 270 K/mm3 (130-400); RED BLOOD COUNT 3.69 M/mm3 (4.10-5.30); REDCELL DISTRIBUTION WIDTH-CV 14.2 % (11.5-14.5)
[2018-02-06 23:13] LABS: HEMATOCRIT 29.6 % (37.0-47.0); HEMOGLOBIN 9.7 g/dl (12.5-16.0); MEAN CORPUSCULAR HEMOGLOBIN 26 pg (27.0-31.0)
[2018-02-06 23:18] LABS: ALANINE AMINOTRANSFERASE 21 U/L (9-52); ALBUMIN 3.6 gm/dL (3.5-5.0); ALKALINE PHOSPHATASE 85 U/L (50-136); ANION GAP 10 mmol/L (7-16); AST,SGOT 18 U/L (15-37); BILIRUBIN,TOTAL 0.2 mg/dL (0.0-1.0); BLOOD UREA NITROGEN 15 mg/dL (7-17); CALCIUM 8.4 mg/dL (8.4-10.2); CARBON DIOXIDE 26 mmol/L (22-30); CHLORIDE 103 mmol/L (98-107); CREATININE, serum 1.25 mg/dL (0.52-1.25); GLUCOSE 203 mg/dL (74-106); SODIUM 138 mmol/L (137-145); TOTAL PROTEIN 6.7 gm/dL (6.4-8.2)
[2018-02-06 23:19] LABS: ACETAMINOPHEN < 10 ug/mL (10-30); ALCOHOL(ethanol),MEDICAL < 10 mg/dL; SALICYLATE < 1.0 mg/dL
[2018-02-06 23:19] LABS: PH 6 (5-8); SQUAMOUS EPITHELIAL 0-2 /hpf; URINE APPEARANCE Clear; URINE BACTERIA None Seen /hpf; URINE BILIRUBIN Negative (NEGATIVE); URINE BLOOD Negative (NEGATIVE); URINE COLOR Straw; URINE GLUCOSE 2+ (NEGATIVE); URINE KETONE Negative (NEGATIVE); URINE LEUKOCYTE ESTERASE Trace (NEGATIVE); URINE NITRATE Negative (NEGATIVE); URINE PROTEIN(semi-quant) 3+ (NEGATIVE); URINE RBC 0-2 /hpf; URINE UROBILINOGEN Negative (NEGATIVE)
[2018-02-06 23:23] LABS: TRICYCLIC ANTIDEPRESS URINE NEGATIVE
[2018-02-07 02:15] VITALS: BP 157/84; PULSE 89
== END 2018-02-07 02:16 | disposition home or self-care (01) ==
LOC: COL.ER 22:32
PROVIDERS: Emergency Medicine
DX: F20.9 Schizophrenia, unspecified (principal); F32.9 Major depressive disorder, single episode, unspecified; E11.9 Type 2 diabetes mellitus without complications; I10 Essential (primary) hypertension; F17.220 Nicotine dependence, chewing tobacco, uncomplicated; Z79.84 Long term (current) use of oral hypoglycemic drugs

== ENCOUNTER 2018-02-12 00:05 | Emergency (ER) | payer MEDICARE, MEDICAID ==
[~2018-02-12] VITALS: Ht 175.3 cm; Wt 100.9 kg
[2018-02-12 00:06] VITALS: TEMP 97.9
[2018-02-12 00:35] LABS: BASO # 0.1 (0.0-0.2); BASO % 0.7 % (0.0-2.0); EOS # 0.3 (0.0-0.7); EOS % 3.3 % (0-4.0); GRAN # 5.6 (1.4-6.5); GRAN % 60.9 % (42.2-75.2); HEMATOCRIT 27.1 % (37.0-47.0); HEMOGLOBIN 8.9 g/dl (12.5-16.0); LYMPH # 2.5 (1.2-3.4); LYMPH % 27.4 % (20.0-51.0); MEAN CELL VOLUME 80 fl (80.0-100.0); MEAN CORPUSCULAR HEMOGLOBIN 26 pg (27.0-31.0); MEAN CORPUSCULAR HGB CONC 33 g/dl (33.0-37.0); MEAN PLATELET VOLUME 10.6 fl (7.4-10.4); MONO # 0.7 (0.1-0.6); MONO % 7.4 % (1.7-9.3); PLATELET COUNT 273 K/mm3 (130-400); RED BLOOD COUNT 3.38 M/mm3 (4.10-5.30); REDCELL DISTRIBUTION WIDTH-CV 14.3 % (11.5-14.5)
[2018-02-12 00:43] LABS: PROTHROMBIN TIME 11.4 SECONDS (9.7-12.8)
[2018-02-12 00:45] LABS: PARTIAL THROMBOPLASTIN TIME 31.3 SECONDS (26.0-37.0)
[2018-02-12 00:48] LABS: ALANINE AMINOTRANSFERASE 24 U/L (9-52); ALBUMIN 3.2 gm/dL (3.5-5.0); ALKALINE PHOSPHATASE 64 U/L (50-136); ANION GAP 10 mmol/L (7-16); AST,SGOT 12 U/L (15-37); BILIRUBIN,TOTAL < 0.1 mg/dL (0.0-1.0); BLOOD UREA NITROGEN 14 mg/dL (7-17); CALCIUM 8.1 mg/dL (8.4-10.2); CARBON DIOXIDE 26 mmol/L (22-30); CHLORIDE 102 mmol/L (98-107); CREATININE, serum 1.24 mg/dL (0.52-1.25); GLUCOSE 238 mg/dL (74-106); LIPASE 48 U/L (23-300); POTASSIUM 3.6 mmol/L (3.4-5.0); SODIUM 138 mmol/L (137-145); TOTAL PROTEIN 6.2 gm/dL (6.4-8.2)
[2018-02-12 00:49] LABS: D-DIMER < 200.00 ng/mLDDu (200-230)
[2018-02-12 01:00] LABS: TROPONIN-I < 0.012 ng/mL (0.000-0.034)
[2018-02-12 04:30] VITALS: BP 154/88; PULSE 85
== END 2018-02-12 04:30 | disposition left against medical advice (07) ==
LOC: COL.ER 00:05
PROVIDERS: Emergency Medicine
DX: R07.89 Other chest pain (principal); I10 Essential (primary) hypertension; E11.9 Type 2 diabetes mellitus without complications; F20.9 Schizophrenia, unspecified; F17.220 Nicotine dependence, chewing tobacco, uncomplicated; Z79.84 Long term (current) use of oral hypoglycemic drugs
CPT/HCPCS: J7030

== ENCOUNTER → 2018-02-13 | Emergency (ER) | payer MEDICARE, MEDICAID ==
[~2018-02-13] VITALS: Ht 175.3 cm; Wt 102.7 kg
[2018-02-14 00:04] VITALS: TEMP 98.4
[2018-02-14 00:24] LABS: BASO # 0.1 (0.0-0.2); BASO % 0.5 % (0.0-2.0); EOS # 0.3 (0.0-0.7); EOS % 2.6 % (0-4.0); GRAN # 6.8 (1.4-6.5); GRAN % 71.5 % (42.2-75.2); LYMPH # 1.8 (1.2-3.4); LYMPH % 18.6 % (20.0-51.0); MEAN CELL VOLUME 79 fl (80.0-100.0); MEAN CORPUSCULAR HGB CONC 33 g/dl (33.0-37.0); MEAN PLATELET VOLUME 10.4 fl (7.4-10.4); MONO # 0.6 (0.1-0.6); MONO % 6.5 % (1.7-9.3); PLATELET COUNT 279 K/mm3 (130-400); RED BLOOD COUNT 3.48 M/mm3 (4.10-5.30); REDCELL DISTRIBUTION WIDTH-CV 14.2 % (11.5-14.5)
[2018-02-14 00:26] LABS: HEMATOCRIT 27.6 % (37.0-47.0); HEMOGLOBIN 9.2 g/dl (12.5-16.0); MEAN CORPUSCULAR HEMOGLOBIN 26 pg (27.0-31.0)
[2018-02-14 00:35] LABS: ALANINE AMINOTRANSFERASE 29 U/L (9-52); ALBUMIN 3.4 gm/dL (3.5-5.0); ALKALINE PHOSPHATASE 70 U/L (50-136); ANION GAP 7 mmol/L (7-16); AST,SGOT 14 U/L (15-37); BILIRUBIN,TOTAL 0.2 mg/dL (0.0-1.0); BLOOD UREA NITROGEN 13 mg/dL (7-17); CALCIUM 8.2 mg/dL (8.4-10.2); CARBON DIOXIDE 27 mmol/L (22-30); CHLORIDE 102 mmol/L (98-107); CREATININE, serum 1.14 mg/dL (0.52-1.25); GLUCOSE 217 mg/dL (74-106); POTASSIUM 3.8 mmol/L (3.4-5.0); SODIUM 136 mmol/L (137-145); TOTAL PROTEIN 6.4 gm/dL (6.4-8.2)
[2018-02-14 00:47] LABS: TROPONIN-I < 0.012 ng/mL (0.000-0.034)
[2018-02-14 01:50] VITALS: BP 153/82; PULSE 76
== END ==
LOC: COL.ER 23:59
PROVIDERS: Nurse Practitioner Primary Care
DX: R07.89 Other chest pain (principal); E11.9 Type 2 diabetes mellitus without complications; F20.9 Schizophrenia, unspecified; Z79.84 Long term (current) use of oral hypoglycemic drugs

== ENCOUNTER 2018-02-24 09:11 | Observation (INO) | payer MEDICARE, MEDICAID ==
[~2018-02-24] VITALS: Ht 175.3 cm; Wt 109.4 kg
[2018-02-24 10:03] LABS: BASO % 0.5 % (0.0-2.0); EOS # 0.3 (0.0-0.7); EOS % 3.5 % (0-4.0); GRAN # 5.6 (1.4-6.5); GRAN % 71.1 % (42.2-75.2); LYMPH # 1.4 (1.2-3.4); MEAN CELL VOLUME 79 fl (80.0-100.0); MEAN CORPUSCULAR HGB CONC 33 g/dl (33.0-37.0); MEAN PLATELET VOLUME 10.6 fl (7.4-10.4); MONO # 0.6 (0.1-0.6); MONO % 7.6 % (1.7-9.3); PLATELET COUNT 269 K/mm3 (130-400); RED BLOOD COUNT 3.35 M/mm3 (4.10-5.30); REDCELL DISTRIBUTION WIDTH-CV 15.1 % (11.5-14.5)
[2018-02-24 10:04] LABS: HEMATOCRIT 26.6 % (37.0-47.0); HEMOGLOBIN 8.8 g/dl (12.5-16.0); MEAN CORPUSCULAR HEMOGLOBIN 26 pg (27.0-31.0)
[2018-02-24 10:17] LABS: ALANINE AMINOTRANSFERASE 44 U/L (9-52); ALBUMIN 3.3 gm/dL (3.5-5.0); ALKALINE PHOSPHATASE 70 U/L (50-136); ANION GAP 11 mmol/L (7-16); AST,SGOT 24 U/L (15-37); BILIRUBIN,TOTAL 0.7 mg/dL (0.0-1.0); BLOOD UREA NITROGEN 27 mg/dL (7-17); CALCIUM 7.9 mg/dL (8.4-10.2); CARBON DIOXIDE 22 mmol/L (22-30); CHLORIDE 100 mmol/L (98-107); CREATININE, serum 1.76 mg/dL (0.52-1.25); GLUCOSE 196 mg/dL (74-106); LIPASE 34 U/L (23-300); POTASSIUM 4.3 mmol/L (3.4-5.0); SODIUM 133 mmol/L (137-145); TOTAL PROTEIN 6.3 gm/dL (6.4-8.2)
[2018-02-24 10:18] LABS: ARTERIAL BLD GAS O2 SATURATION 91.9 % (92-100); ARTERIAL BLD GAS TCO2 CT 22.5; ARTERIAL BLOOD GAS BASE EXCESS -3.4 (-2-2); ARTERIAL BLOOD GAS HCO3 21.4 meq/L (22-26); ARTERIAL BLOOD GAS PCO2 37.2 mmHg (35-45); ARTERIAL BLOOD GAS PO2 67.2 mmHg (80-100); ARTERIAL BLOOD GAS pH 7.38 (7.35-7.45)
[2018-02-24 10:30] LABS: TROPONIN-I < 0.012 ng/mL (0.000-0.034)
[2018-02-24 13:05] VITALS: BP 162/93; PULSE 81; TEMP 98
[2018-02-24] MEDS ORDERED: RISPERDAL CONST50 MG IM (13:05)
[2018-02-24 15:18] VITALS: BP 172/83; PULSE 97; TEMP 97.9
[2018-02-24 17:33] LABS: PARTIAL THROMBOPLASTIN TIME 135.3 SECONDS (26.0-37.0)
[2018-02-24 17:56] LABS: URINE BACTERIA Rare /hpf; URINE RBC 0-2 /hpf
[2018-02-24 17:59] LABS: PH 5 (5-8); URINE APPEARANCE Clear; URINE BILIRUBIN Negative (NEGATIVE); URINE BLOOD Negative (NEGATIVE); URINE COLOR Straw; URINE GLUCOSE Negative (NEGATIVE); URINE KETONE Negative (NEGATIVE); URINE LEUKOCYTE ESTERASE Negative (NEGATIVE); URINE NITRATE Negative (NEGATIVE); URINE PROTEIN(semi-quant) 2+ (NEGATIVE); URINE UROBILINOGEN Negative (NEGATIVE)
[2018-02-24 18:36] LABS: COLLECTION METHOD CLEAN CATCH
[2018-02-24 20:18] VITALS: BP 196/95; PULSE 106; TEMP 98.6
[2018-02-24 22:44] LABS: CREATININE, serum 1.8 mg/dL (0.52-1.25)
[2018-02-24 22:47] LABS: FRACTIONAL EXCRETION OF NA+ 2.5 %
[2018-02-25 06:30] LABS: BASO % 0.2 % (0.0-2.0); EOS # 0.2 (0.0-0.7); EOS % 1.7 % (0-4.0); GRAN # 9.1 (1.4-6.5); GRAN % 75.6 % (42.2-75.2); LYMPH # 1.9 (1.2-3.4); LYMPH % 15.5 % (20.0-51.0); MEAN CELL VOLUME 80 fl (80.0-100.0); MEAN CORPUSCULAR HGB CONC 33 g/dl (33.0-37.0); MEAN PLATELET VOLUME 10.5 fl (7.4-10.4); MONO # 0.8 (0.1-0.6); MONO % 6.7 % (1.7-9.3); PLATELET COUNT 258 K/mm3 (130-400); RED BLOOD COUNT 3.15 M/mm3 (4.10-5.30); REDCELL DISTRIBUTION WIDTH-CV 15.3 % (11.5-14.5)
[2018-02-25 06:31] LABS: HEMATOCRIT 25.2 % (37.0-47.0); HEMOGLOBIN 8.3 g/dl (12.5-16.0); MEAN CORPUSCULAR HEMOGLOBIN 26 pg (27.0-31.0)
[2018-02-25 06:45] LABS: CALCIUM 7.8 mg/dL (8.4-10.2); CHOLESTEROL RISK RATIO 4.5; CREATININE, serum 1.49 mg/dL (0.52-1.25); POTASSIUM 3.9 mmol/L (3.4-5.0)
[2018-02-25] MEDS ORDERED: NORVASC 10MG10 MG PO (16:08)
== END 2018-02-25 08:00 | disposition left against medical advice (07) ==
LOC: COL.ER 09:11 → MEDICAL 11:13
PROVIDERS: Emergency Medicine; Physician Assistant
DX: R07.9 Chest pain, unspecified (principal); R06.02 Shortness of breath; R79.1 Abnormal coagulation profile; R79.89 Other specified abnormal findings of blood chemistry; I11.0 Hypertensive heart disease with heart failure; I50.30 Unspecified diastolic (congestive) heart failure; N17.9 Acute kidney failure, unspecified; E11.22 Type 2 diabetes mellitus with diabetic chronic kidney disease; I12.9 Hypertensive chronic kidney disease with stage 1 through stage 4 chronic kidney disease, or unspecified chronic kidney disease; N18.9 Chronic kidney disease, unspecified; Z79.84 Long term (current) use of oral hypoglycemic drugs; D50.9 Iron deficiency anemia, unspecified; E87.1 Hypo-osmolality and hyponatremia; F20.0 Paranoid schizophrenia; Z79.899 Other long term (current) drug therapy; F17.228 Nicotine dependence, chewing tobacco, with other nicotine-induced disorders; E66.9 Obesity, unspecified; Z86.711 Personal history of pulmonary embolism
CPT/HCPCS: G0378; J1644; J1815; J2270

== ENCOUNTER 2018-03-02 21:00 | Emergency (ER) | payer MEDICARE, MEDICAID ==
[~2018-03-02] VITALS: Ht 175.3 cm; Wt 109.1 kg
[~2018-03-02 21:00] MED LIST changes: +NORVASC 10MG10 MG PO; +RISPERDAL CONST50 MG IM
[2018-03-02 21:03] VITALS: BP 166/101; TEMP 97.2
[2018-03-02 21:46] LABS: BASO # 0.1 (0.0-0.2); BASO % 0.5 % (0.0-2.0); EOS # 0.4 (0.0-0.7); EOS % 4.1 % (0-4.0); GRAN # 6.5 (1.4-6.5); GRAN % 66.6 % (42.2-75.2); LYMPH # 2.1 (1.2-3.4); LYMPH % 21.6 % (20.0-51.0); MEAN CELL VOLUME 82 fl (80.0-100.0); MEAN CORPUSCULAR HGB CONC 32 g/dl (33.0-37.0); MONO # 0.7 (0.1-0.6); PLATELET COUNT 303 K/mm3 (130-400); RED BLOOD COUNT 3.46 M/mm3 (4.10-5.30); REDCELL DISTRIBUTION WIDTH-CV 15.2 % (11.5-14.5)
[2018-03-02 21:57] LABS: HEMATOCRIT 28.5 % (37.0-47.0); HEMOGLOBIN 9.1 g/dl (12.5-16.0); MEAN CORPUSCULAR HEMOGLOBIN 26 pg (27.0-31.0)
[2018-03-02 22:23] LABS: ALANINE AMINOTRANSFERASE 50 U/L (9-52); ALBUMIN 3.5 gm/dL (3.5-5.0); ALKALINE PHOSPHATASE 70 U/L (50-136); ANION GAP 9 mmol/L (7-16); AST,SGOT 40 U/L (15-37); BILIRUBIN,TOTAL 0.2 mg/dL (0.0-1.0); BLOOD UREA NITROGEN 17 mg/dL (7-17); C-REACTIVE PROTEIN 0.8 mg/dL (0.0-0.9); CALCIUM 8.5 mg/dL (8.4-10.2); CARBON DIOXIDE 25 mmol/L (22-30); CHLORIDE 103 mmol/L (98-107); CREATININE, serum 1.36 mg/dL (0.52-1.25); GLUCOSE 184 mg/dL (74-106); POTASSIUM 4.3 mmol/L (3.4-5.0); SODIUM 137 mmol/L (137-145); TOTAL PROTEIN 6.6 gm/dL (6.4-8.2)
[2018-03-02 22:33] LABS: TROPONIN-I < 0.012 ng/mL (0.000-0.034)
[2018-03-02 23:00] VITALS: PULSE 87
== END 2018-03-02 23:00 | disposition left against medical advice (07) ==
LOC: COL.ER 21:00
PROVIDERS: Emergency Medicine
DX: I50.9 Heart failure, unspecified (principal); J90 Pleural effusion, not elsewhere classified; I10 Essential (primary) hypertension; F17.210 Nicotine dependence, cigarettes, uncomplicated

== ENCOUNTER 2018-03-03 23:38 | Emergency (ER) | payer MEDICARE, MEDICAID ==
[~2018-03-03] VITALS: Ht 175.3 cm; Wt 109.1 kg
[2018-03-03 23:40] VITALS: TEMP 97.9
[2018-03-04 00:43] LABS: BASO % 0.4 % (0.0-2.0); EOS # 0.4 (0.0-0.7); EOS % 4.1 % (0-4.0); GRAN # 6.8 (1.4-6.5); GRAN % 67.5 % (42.2-75.2); LYMPH # 2.1 (1.2-3.4); LYMPH % 21.1 % (20.0-51.0); MEAN CELL VOLUME 81 fl (80.0-100.0); MEAN CORPUSCULAR HGB CONC 33 g/dl (33.0-37.0); MEAN PLATELET VOLUME 9.8 fl (7.4-10.4); MONO # 0.7 (0.1-0.6); MONO % 6.6 % (1.7-9.3); PLATELET COUNT 321 K/mm3 (130-400); RED BLOOD COUNT 3.32 M/mm3 (4.10-5.30); REDCELL DISTRIBUTION WIDTH-CV 15.5 % (11.5-14.5)
[2018-03-04 00:46] LABS: HEMATOCRIT 26.9 % (37.0-47.0); HEMOGLOBIN 8.8 g/dl (12.5-16.0); MEAN CORPUSCULAR HEMOGLOBIN 27 pg (27.0-31.0)
[2018-03-04 00:53] LABS: ALANINE AMINOTRANSFERASE 50 U/L (9-52); ALBUMIN 3.4 gm/dL (3.5-5.0); ALKALINE PHOSPHATASE 73 U/L (50-136); ANION GAP 10 mmol/L (7-16); AST,SGOT 22 U/L (15-37); BILIRUBIN,TOTAL 0.2 mg/dL (0.0-1.0); BLOOD UREA NITROGEN 16 mg/dL (7-17); CALCIUM 8.5 mg/dL (8.4-10.2); CARBON DIOXIDE 23 mmol/L (22-30); CHLORIDE 104 mmol/L (98-107); CREATININE, serum 1.17 mg/dL (0.52-1.25); GLUCOSE 172 mg/dL (74-106); SODIUM 138 mmol/L (137-145); TOTAL PROTEIN 6.6 gm/dL (6.4-8.2)
[2018-03-04 01:00] LABS: PROTHROMBIN TIME 11.5 SECONDS (9.7-12.8)
[2018-03-04 01:08] LABS: TROPONIN-I < 0.012 ng/mL (0.000-0.034)
[2018-03-04 01:23] VITALS: BP 129/64
[2018-03-04 04:31] VITALS: PULSE 89
== END 2018-03-04 04:32 | disposition home or self-care (01) ==
LOC: COL.ER 23:38
PROVIDERS: Emergency Medicine
DX: E11.22 Type 2 diabetes mellitus with diabetic chronic kidney disease (principal); I13.0 Hypertensive heart and chronic kidney disease with heart failure and stage 1 through stage 4 chronic kidney disease, or unspecified chronic kidney disease; I50.9 Heart failure, unspecified; N18.9 Chronic kidney disease, unspecified; F20.9 Schizophrenia, unspecified; D64.9 Anemia, unspecified; E66.9 Obesity, unspecified; F17.290 Nicotine dependence, other tobacco product, uncomplicated; Z68.35 Body mass index [BMI] 35.0-35.9, adult; Z86.711 Personal history of pulmonary embolism; Z79.84 Long term (current) use of oral hypoglycemic drugs
CPT/HCPCS: Q9967

== ENCOUNTER 2018-03-13 03:28 | Emergency (ER) | payer MEDICARE, MEDICAID ==
[~2018-03-13] VITALS: Ht 175.3 cm; Wt 118.2 kg
[2018-03-13 03:29] VITALS: BP 149/78; PULSE 88; TEMP 97.6
== END 2018-03-13 04:40 | disposition home or self-care (01) ==
LOC: COL.ER 03:28
DX: R06.02 Shortness of breath (principal); E11.9 Type 2 diabetes mellitus without complications; I10 Essential (primary) hypertension; F17.220 Nicotine dependence, chewing tobacco, uncomplicated; F20.0 Paranoid schizophrenia; Z79.84 Long term (current) use of oral hypoglycemic drugs; Z98.51 Tubal ligation status

== ENCOUNTER 2018-03-18 12:48 | Emergency (ER) | payer MEDICARE, MEDICAID ==
[~2018-03-18] VITALS: Ht 175.3 cm; Wt 110.5 kg
[2018-03-18 12:55] VITALS: BP 180/78
[2018-03-18 13:28] LABS: BASO # 0.1 (0.0-0.2); BASO % 0.6 % (0.0-2.0); EOS # 0.2 (0.0-0.7); GRAN # 5.8 (1.4-6.5); GRAN % 71.5 % (42.2-75.2); LYMPH # 1.5 (1.2-3.4); LYMPH % 18.2 % (20.0-51.0); MEAN CELL VOLUME 83 fl (80.0-100.0); MEAN CORPUSCULAR HGB CONC 34 g/dl (33.0-37.0); MEAN PLATELET VOLUME 9.7 fl (7.4-10.4); MONO # 0.5 (0.1-0.6); MONO % 6.3 % (1.7-9.3); PLATELET COUNT 348 K/mm3 (130-400); RED BLOOD COUNT 3.05 M/mm3 (4.10-5.30); REDCELL DISTRIBUTION WIDTH-CV 17.8 % (11.5-14.5)
[2018-03-18 13:37] LABS: ALBUMIN 3.7 gm/dL (3.5-5.0); BILIRUBIN,TOTAL 0.3 mg/dL (0.0-1.0); CALCIUM 8.6 mg/dL (8.4-10.2); CREATININE, serum 1.27 mg/dL (0.52-1.25); POTASSIUM 4.1 mmol/L (3.4-5.0); TOTAL PROTEIN 6.9 gm/dL (6.4-8.2)
[2018-03-18 13:38] LABS: C-REACTIVE PROTEIN 0.5 mg/dL (0.0-0.9); HEMATOCRIT 25.3 % (37.0-47.0); HEMOGLOBIN 8.5 g/dl (12.5-16.0); MEAN CORPUSCULAR HEMOGLOBIN 28 pg (27.0-31.0)
[2018-03-18 13:53] LABS: COLLECTION METHOD CLEAN CATCH
[2018-03-18 14:00] LABS: PH 5 (5-8); SQUAMOUS EPITHELIAL 0-2 /hpf; URINE APPEARANCE Clear; URINE BACTERIA None Seen /hpf; URINE BILIRUBIN Negative (NEGATIVE); URINE BLOOD Negative (NEGATIVE); URINE COLOR Straw; URINE GLUCOSE Negative (NEGATIVE); URINE KETONE Negative (NEGATIVE); URINE LEUKOCYTE ESTERASE Trace (NEGATIVE); URINE NITRATE Negative (NEGATIVE); URINE PROTEIN(semi-quant) 2+ (NEGATIVE); URINE RBC 0-2 /hpf; URINE UROBILINOGEN Negative (NEGATIVE)
[2018-03-18 14:26] VITALS: PULSE 86; TEMP 97.9
== END 2018-03-18 14:26 | disposition home or self-care (01) ==
LOC: COL.ER 12:48
PROVIDERS: Emergency Medicine
DX: R10.30 Lower abdominal pain, unspecified (principal); R11.10 Vomiting, unspecified; E11.9 Type 2 diabetes mellitus without complications; I10 Essential (primary) hypertension; F32.9 Major depressive disorder, single episode, unspecified; F20.9 Schizophrenia, unspecified; F17.220 Nicotine dependence, chewing tobacco, uncomplicated; Z98.51 Tubal ligation status; Z79.84 Long term (current) use of oral hypoglycemic drugs

== ENCOUNTER 2018-04-30 04:03 | Emergency (ER) | payer MEDICARE, MEDICAID ==
[~2018-04-30] VITALS: Ht 175.3 cm; Wt 106.4 kg
[2018-04-30 04:14] VITALS: TEMP 97.5
[2018-04-30] MEDS ORDERED: ZESTRIL 10MG10 MG PO (04:16)
[2018-04-30] MEDS ORDERED: K-DUR 10 MEQ T10 MEQ PO (04:54)
[2018-04-30] MEDS ORDERED: LASIX 20MG TABL20 MG PO (04:54)
[2018-04-30 05:59] VITALS: BP 186/99; PULSE 96
== END 2018-04-30 05:59 | disposition home or self-care (01) ==
LOC: COL.ER 04:03
DX: J90 Pleural effusion, not elsewhere classified (principal); R51 Headache; M25.511 Pain in right shoulder
CPT/HCPCS: J1885

== ENCOUNTER 2018-05-26 02:45 | Emergency (ER) | payer MEDICARE, MEDICAID ==
[~2018-05-26] VITALS: Ht 175.3 cm; Wt 106.4 kg
[~2018-05-26 02:45] MED LIST changes: +ZESTRIL 10MG10 MG PO
[2018-05-26 02:47] VITALS: TEMP 98.4
[2018-05-26 03:24] LABS: BASO % 0.5 % (0.0-2.0); EOS # 0.3 (0.0-0.7); EOS % 3.2 % (0-4.0); GRAN # 5.5 (1.4-6.5); GRAN % 64.2 % (42.2-75.2); LYMPH # 2.1 (1.2-3.4); LYMPH % 24.2 % (20.0-51.0); MEAN CELL VOLUME 83 fl (80.0-100.0); MEAN CORPUSCULAR HGB CONC 34 g/dl (33.0-37.0); MEAN PLATELET VOLUME 10.5 fl (7.4-10.4); MONO # 0.7 (0.1-0.6); MONO % 7.8 % (1.7-9.3); PLATELET COUNT 283 K/mm3 (130-400); RED BLOOD COUNT 3.44 M/mm3 (4.10-5.30); REDCELL DISTRIBUTION WIDTH-CV 13.1 % (11.5-14.5)
[2018-05-26 03:32] LABS: HEMATOCRIT 28.6 % (37.0-47.0); HEMOGLOBIN 9.7 g/dl (12.5-16.0); MEAN CORPUSCULAR HEMOGLOBIN 28 pg (27.0-31.0)
[2018-05-26 03:40] LABS: ALANINE AMINOTRANSFERASE 29 U/L (9-52); ALBUMIN 3.4 gm/dL (3.5-5.0); ALKALINE PHOSPHATASE 68 U/L (50-136); ANION GAP 5 mmol/L (7-16); AST,SGOT 14 U/L (15-37); BILIRUBIN,TOTAL 0.1 mg/dL (0.0-1.0); BLOOD UREA NITROGEN 14 mg/dL (7-17); CALCIUM 8.6 mg/dL (8.4-10.2); CARBON DIOXIDE 27 mmol/L (22-30); CHLORIDE 103 mmol/L (98-107); CREATININE, serum 1.22 mg/dL (0.52-1.25); GLUCOSE 299 mg/dL (74-106); POTASSIUM 3.7 mmol/L (3.4-5.0); SODIUM 136 mmol/L (137-145); TOTAL PROTEIN 6.4 gm/dL (6.4-8.2)
[2018-05-26 03:51] LABS: TROPONIN-I < 0.012 ng/mL (0.000-0.034)
[2018-05-26 03:57] LABS: COLLECTION METHOD CLEAN CATCH
[2018-05-26 04:02] LABS: PH 6 (5-8); SQUAMOUS EPITHELIAL 0-2 /hpf; URINE APPEARANCE Clear; URINE BACTERIA Rare /hpf; URINE BILIRUBIN Negative (NEGATIVE); URINE BLOOD 1+ (NEGATIVE); URINE COLOR Straw; URINE GLUCOSE 3+ (NEGATIVE); URINE KETONE Negative (NEGATIVE); URINE LEUKOCYTE ESTERASE Trace (NEGATIVE); URINE NITRATE Negative (NEGATIVE); URINE PROTEIN(semi-quant) 2+ (NEGATIVE); URINE RBC 0-2 /hpf; URINE UROBILINOGEN Negative (NEGATIVE)
[2018-05-26 04:39] VITALS: PULSE 82
== END 2018-05-26 04:39 | disposition home or self-care (01) ==
LOC: COL.ER 02:45
PROVIDERS: Emergency Medicine
DX: F29 Unspecified psychosis not due to a substance or known physiological condition (principal); F20.9 Schizophrenia, unspecified; E11.9 Type 2 diabetes mellitus without complications; F17.220 Nicotine dependence, chewing tobacco, uncomplicated; Z79.84 Long term (current) use of oral hypoglycemic drugs

== ENCOUNTER 2018-06-23 07:56 | Emergency (ER) | payer MEDICARE, MEDICAID ==
[~2018-06-23] VITALS: Ht 175.3 cm; Wt 105.0 kg
[2018-06-23 08:19] LABS: COLLECTION METHOD CLEAN CATCH
[2018-06-23 08:24] LABS: MUCOUS Present /lpf; PH 6 (5-8); SQUAMOUS EPITHELIAL 0-2 /hpf; URINE APPEARANCE Clear; URINE BACTERIA None Seen /hpf; URINE BILIRUBIN Negative (NEGATIVE); URINE BLOOD Negative (NEGATIVE); URINE COLOR Yellow; URINE GLUCOSE 1+ (NEGATIVE); URINE KETONE Negative (NEGATIVE); URINE LEUKOCYTE ESTERASE Negative (NEGATIVE); URINE NITRATE Negative (NEGATIVE); URINE PROTEIN(semi-quant) 2+ (NEGATIVE); URINE RBC 0-2 /hpf; URINE UROBILINOGEN Negative (NEGATIVE)
[2018-06-23 08:29] LABS: BASO # 0.1 (0.0-0.2); BASO % 0.8 % (0.0-2.0); EOS # 0.2 (0.0-0.7); EOS % 3.6 % (0-4.0); GRAN # 4.1 (1.4-6.5); GRAN % 62.6 % (42.2-75.2); HEMOGLOBIN 12.2 g/dl (12.5-16.0); LYMPH # 1.6 (1.2-3.4); LYMPH % 24.5 % (20.0-51.0); MEAN CELL VOLUME 83 fl (80.0-100.0); MEAN CORPUSCULAR HEMOGLOBIN 28 pg (27.0-31.0); MEAN CORPUSCULAR HGB CONC 33 g/dl (33.0-37.0); MEAN PLATELET VOLUME 10.7 fl (7.4-10.4); MONO # 0.6 (0.1-0.6); MONO % 8.3 % (1.7-9.3); PLATELET COUNT 262 K/mm3 (130-400); RED BLOOD COUNT 4.41 M/mm3 (4.10-5.30); REDCELL DISTRIBUTION WIDTH-CV 12.5 % (11.5-14.5)
[2018-06-23 08:31] LABS: HEMATOCRIT 36.5 % (37.0-47.0)
[2018-06-23 08:33] LABS: TRICYCLIC ANTIDEPRESS URINE NEGATIVE
[2018-06-23 08:42] LABS: ALANINE AMINOTRANSFERASE 25 U/L (9-52); ALBUMIN 3.9 gm/dL (3.5-5.0); ALKALINE PHOSPHATASE 64 U/L (50-136); ANION GAP 5 mmol/L (7-16); AST,SGOT 14 U/L (15-37); BILIRUBIN,TOTAL 0.4 mg/dL (0.0-1.0); BLOOD UREA NITROGEN 23 mg/dL (7-17); CALCIUM 9.3 mg/dL (8.4-10.2); CARBON DIOXIDE 29 mmol/L (22-30); CHLORIDE 102 mmol/L (98-107); CREATININE, serum 1.61 mg/dL (0.52-1.25); GLUCOSE 220 mg/dL (74-106); MAGNESIUM 1.8 mg/dL (1.6-2.3); PHOSPHOROUS 5.1 mg/dL (2.5-4.5); POTASSIUM 4.7 mmol/L (3.4-5.0); SODIUM 136 mmol/L (137-145); TOTAL PROTEIN 7.1 gm/dL (6.4-8.2)
[2018-06-23 08:43] LABS: ALCOHOL(ethanol),MEDICAL < 10 mg/dL; SALICYLATE < 1.0 mg/dL
[2018-06-23 09:05] VITALS: BP 172/79; PULSE 102; TEMP 98.1
== END 2018-06-23 09:05 | disposition left against medical advice (07) ==
LOC: COL.ER 07:56
PROVIDERS: Emergency Medicine
DX: F20.9 Schizophrenia, unspecified (principal); F29 Unspecified psychosis not due to a substance or known physiological condition; E11.9 Type 2 diabetes mellitus without complications; I10 Essential (primary) hypertension; F17.220 Nicotine dependence, chewing tobacco, uncomplicated; Z79.84 Long term (current) use of oral hypoglycemic drugs

== ENCOUNTER 2018-07-27 00:50 | Emergency (ER) | payer MEDICARE, MEDICAID ==
[~2018-07-27] VITALS: Ht 175.3 cm; Wt 104.5 kg
[2018-07-27 00:51] VITALS: BP 156/97
[2018-07-27 02:04] VITALS: PULSE 80
== END 2018-07-27 02:04 | disposition left against medical advice (07) ==
LOC: COL.ER 00:50
DX: R42 Dizziness and giddiness (principal); I10 Essential (primary) hypertension; E11.9 Type 2 diabetes mellitus without complications; F20.9 Schizophrenia, unspecified; F17.220 Nicotine dependence, chewing tobacco, uncomplicated; Z98.51 Tubal ligation status; Z79.84 Long term (current) use of oral hypoglycemic drugs

== ENCOUNTER → 2018-08-20 | Outpatient (CLI) | payer MEDICARE, MEDICAID | LOC: BHSO 10:57 | DX: F20.9 Schizophrenia, unspecified (principal) ==

== ENCOUNTER 2018-09-14 22:09 | Emergency (ER) | payer MEDICARE, MEDICAID ==
[~2018-09-14] VITALS: Ht 175.3 cm; Wt 106.8 kg
[2018-09-14 22:11] VITALS: TEMP 97.4
[2018-09-14 23:04] LABS: BASO % 0.5 % (0.0-2.0); EOS # 0.2 (0.0-0.7); EOS % 2.9 % (0-4.0); GRAN # 4.3 (1.4-6.5); HEMOGLOBIN 10.1 g/dl (12.5-16.0); LYMPH # 1.5 (1.2-3.4); MEAN CELL VOLUME 81 fl (80.0-100.0); MEAN CORPUSCULAR HEMOGLOBIN 28 pg (27.0-31.0); MEAN CORPUSCULAR HGB CONC 34 g/dl (33.0-37.0); MEAN PLATELET VOLUME 10.1 fl (7.4-10.4); MONO # 0.6 (0.1-0.6); MONO % 9.3 % (1.7-9.3); PLATELET COUNT 300 K/mm3 (130-400); RED BLOOD COUNT 3.66 M/mm3 (4.10-5.30); REDCELL DISTRIBUTION WIDTH-CV 12.8 % (11.5-14.5)
[2018-09-14 23:05] LABS: HEMATOCRIT 29.5 % (37.0-47.0)
[2018-09-14 23:12] LABS: ALBUMIN 3.7 gm/dL (3.5-5.0); BILIRUBIN,TOTAL 0.3 mg/dL (0.0-1.0); CALCIUM 8.8 mg/dL (8.4-10.2); CREATININE, serum 1.47 mg/dL (0.52-1.25); MAGNESIUM 1.7 mg/dL (1.6-2.3); PHOSPHOROUS 4.8 mg/dL (2.5-4.5); POTASSIUM 4.8 mmol/L (3.4-5.0)
[2018-09-15 00:05] LABS: COLLECTION METHOD CLEAN CATCH
[2018-09-15 00:13] LABS: PH 6 (5-8); SQUAMOUS EPITHELIAL 0-2 /hpf; URINE APPEARANCE Clear; URINE BACTERIA Rare /hpf; URINE BILIRUBIN Negative (NEGATIVE); URINE BLOOD Negative (NEGATIVE); URINE COLOR Straw; URINE GLUCOSE 3+ (NEGATIVE); URINE KETONE Negative (NEGATIVE); URINE LEUKOCYTE ESTERASE 2+ (NEGATIVE); URINE NITRATE Negative (NEGATIVE); URINE PROTEIN(semi-quant) 2+ (NEGATIVE); URINE UROBILINOGEN Negative (NEGATIVE)
[2018-09-15] MEDS ORDERED: CEFTIN500 MG PO (00:35)
[2018-09-15 01:55] VITALS: BP 130/79; PULSE 79
== END 2018-09-15 01:55 | disposition home or self-care (01) ==
LOC: COL.ER 22:09
PROVIDERS: Emergency Medicine
DX: N39.0 Urinary tract infection, site not specified (principal); R42 Dizziness and giddiness; E11.9 Type 2 diabetes mellitus without complications; F20.9 Schizophrenia, unspecified; F17.220 Nicotine dependence, chewing tobacco, uncomplicated; Z79.84 Long term (current) use of oral hypoglycemic drugs
CPT/HCPCS: A4216; J0696; J1815; J2060; J7030

== ENCOUNTER → 2018-09-14 | Outpatient (CLI) | payer MEDICARE, MEDICAID | LOC: BHSO 11:38 | DX: F20.9 Schizophrenia, unspecified (principal) | CPT/HCPCS: G0463 ==

== ENCOUNTER 2018-09-29 23:15 | Emergency (ER) | payer MEDICARE, MEDICAID ==
[~2018-09-29] VITALS: Ht 175.3 cm; Wt 106.8 kg
[2018-09-29 23:17] VITALS: BP 172/77; PULSE 94; TEMP 98.1
[2018-09-30 00:57] LABS: TRICYCLIC ANTIDEPRESS URINE NEGATIVE
[2018-09-30 01:02] LABS: BASO # 0.1 (0.0-0.2); BASO % 0.6 % (0.0-2.0); EOS # 0.2 (0.0-0.7); EOS % 2.4 % (0-4.0); GRAN # 4.3 (1.4-6.5); GRAN % 55.2 % (42.2-75.2); LYMPH # 2.5 (1.2-3.4); LYMPH % 32.1 % (20.0-51.0); MEAN CELL VOLUME 85 fl (80.0-100.0); MEAN CORPUSCULAR HEMOGLOBIN 29 pg (27.0-31.0); MEAN CORPUSCULAR HGB CONC 34 g/dl (33.0-37.0); MONO # 0.8 (0.1-0.6); MONO % 9.6 % (1.7-9.3); PLATELET COUNT 270 K/mm3 (130-400); REDCELL DISTRIBUTION WIDTH-CV 13.1 % (11.5-14.5)
[2018-09-30 01:04] LABS: HEMATOCRIT 29.6 % (37.0-47.0)
[2018-09-30 01:19] LABS: ALANINE AMINOTRANSFERASE 7 U/L (9-52); ALBUMIN 3.9 gm/dL (3.5-5.0); ALKALINE PHOSPHATASE 77 U/L (50-136); ANION GAP 8 mmol/L (7-16); AST,SGOT 15 U/L (15-37); BILIRUBIN,TOTAL 0.4 mg/dL (0.0-1.0); BLOOD UREA NITROGEN 27 mg/dL (7-17); CARBON DIOXIDE 26 mmol/L (22-30); CHLORIDE 104 mmol/L (98-107); CREATININE, serum 1.93 mg/dL (0.52-1.25); GLUCOSE 202 mg/dL (74-106); POTASSIUM 4.3 mmol/L (3.4-5.0); SODIUM 137 mmol/L (137-145); TOTAL PROTEIN 7.2 gm/dL (6.4-8.2)
[2018-09-30 01:21] LABS: ACETAMINOPHEN < 10 ug/mL (10-30); ALCOHOL(ethanol),MEDICAL < 10 mg/dL; SALICYLATE < 1.0 mg/dL
[2018-09-30 09:48] LABS: COLLECTION METHOD CLEAN CATCH
[2018-09-30 10:15] LABS: MUCOUS Present /lpf; PH 5 (5-8); URINE APPEARANCE Hazy; URINE BACTERIA Rare /hpf; URINE BILIRUBIN Negative (NEGATIVE); URINE BLOOD Negative (NEGATIVE); URINE COLOR Yellow; URINE GLUCOSE 2+ (NEGATIVE); URINE KETONE Negative (NEGATIVE); URINE LEUKOCYTE ESTERASE 2+ (NEGATIVE); URINE NITRATE Negative (NEGATIVE); URINE PROTEIN(semi-quant) 2+ (NEGATIVE); URINE UROBILINOGEN Negative (NEGATIVE)
[2018-09-30] MEDS ORDERED: INVEGA9 MG PO (19:58)
[2018-09-30] MEDS ORDERED: LASIX 20MG TABL20 MG PO (20:03)
[2018-09-30] MEDS ORDERED: REMERON 15M15 MG/TA1 PO (20:03)
[2018-09-30] MEDS ORDERED: JANUVIA50 MG PO (20:03)
[2018-09-30] MEDS ORDERED: POTA PO (20:04)
== END 2018-09-30 01:15 | disposition left against medical advice (07) ==
LOC: COL.ER 23:15
PROVIDERS: Emergency Medicine
DX: F29 Unspecified psychosis not due to a substance or known physiological condition (principal); F17.220 Nicotine dependence, chewing tobacco, uncomplicated

== ENCOUNTER 2018-09-30 10:52 | Emergency (ER) | payer MEDICARE, MEDICAID ==
[~2018-09-30] VITALS: Ht 175.3 cm; Wt 106.8 kg
[2018-09-30 10:56] VITALS: BP 207/91; PULSE 94; TEMP 98.4
[2018-09-30 11:20] LABS: BASO % 0.6 % (0.0-2.0); EOS # 0.1 (0.0-0.7); EOS % 2.1 % (0-4.0); GRAN # 4.2 (1.4-6.5); GRAN % 61.3 % (42.2-75.2); HEMOGLOBIN 10.1 g/dl (12.5-16.0); LYMPH # 1.9 (1.2-3.4); LYMPH % 27.3 % (20.0-51.0); MEAN CELL VOLUME 84 fl (80.0-100.0); MEAN CORPUSCULAR HEMOGLOBIN 29 pg (27.0-31.0); MEAN CORPUSCULAR HGB CONC 34 g/dl (33.0-37.0); MEAN PLATELET VOLUME 10.3 fl (7.4-10.4); MONO # 0.6 (0.1-0.6); MONO % 8.6 % (1.7-9.3); PLATELET COUNT 251 K/mm3 (130-400); RED BLOOD COUNT 3.54 M/mm3 (4.10-5.30)
[2018-09-30 11:22] LABS: HEMATOCRIT 29.7 % (37.0-47.0)
[2018-09-30 11:31] LABS: COLLECTION METHOD CLEAN CATCH
[2018-09-30 11:37] LABS: ACETAMINOPHEN < 10 ug/mL (10-30); ALANINE AMINOTRANSFERASE 11 U/L (9-52); ALBUMIN 3.9 gm/dL (3.5-5.0); ALCOHOL(ethanol),MEDICAL < 10 mg/dL; ALKALINE PHOSPHATASE 78 U/L (50-136); ANION GAP 9 mmol/L (7-16); AST,SGOT 18 U/L (15-37); BILIRUBIN,TOTAL 0.4 mg/dL (0.0-1.0); BLOOD UREA NITROGEN 27 mg/dL (7-17); CALCIUM 9.1 mg/dL (8.4-10.2); CARBON DIOXIDE 25 mmol/L (22-30); CHLORIDE 104 mmol/L (98-107); CREATININE, serum 1.98 mg/dL (0.52-1.25); GLUCOSE 185 mg/dL (74-106); POTASSIUM 4.3 mmol/L (3.4-5.0); SALICYLATE < 1.0 mg/dL; SODIUM 138 mmol/L (137-145); TOTAL PROTEIN 7.4 gm/dL (6.4-8.2)
[2018-09-30 11:47] LABS: MUCOUS Present /lpf; PH 5 (5-8); TRICYCLIC ANTIDEPRESS URINE NEGATIVE; URINE APPEARANCE Hazy; URINE BACTERIA Rare /hpf; URINE BILIRUBIN Negative (NEGATIVE); URINE BLOOD Negative (NEGATIVE); URINE COLOR Yellow; URINE GLUCOSE 1+ (NEGATIVE); URINE KETONE Negative (NEGATIVE); URINE LEUKOCYTE ESTERASE 2+ (NEGATIVE); URINE NITRATE Negative (NEGATIVE); URINE PROTEIN(semi-quant) 2+ (NEGATIVE); URINE UROBILINOGEN Negative (NEGATIVE)
[2018-09-30] MEDS ORDERED: INVEGA9 MG PO (19:58)
[2018-09-30] MEDS ORDERED: JANUVIA50 MG PO (20:03)
[2018-09-30] MEDS ORDERED: REMERON 15M15 MG/TA1 PO (20:03)
[2018-09-30] MEDS ORDERED: LASIX 20MG TABL20 MG PO (20:03)
[2018-09-30] MEDS ORDERED: POTA PO (20:04)
== END 2018-09-30 12:30 | disposition left against medical advice (07) ==
LOC: COL.ER 10:52
PROVIDERS: Emergency Medicine
DX: F23 Brief psychotic disorder (principal); N39.0 Urinary tract infection, site not specified; E11.9 Type 2 diabetes mellitus without complications; I10 Essential (primary) hypertension; Z98.51 Tubal ligation status; Z79.84 Long term (current) use of oral hypoglycemic drugs
CPT/HCPCS: J7030

== ENCOUNTER → 2018-10-26 | Outpatient (CLI) | payer MEDICARE, MEDICAID ==
[~2018-10-26] MED LIST changes: +INVEGA9 MG PO; +JANUVIA50 MG PO; +POTA PO; +REMERON 15M15 MG/TA1 PO
== END ==
LOC: BHSO 09-29 10:08
DX: F20.9 Schizophrenia, unspecified (principal)
CPT/HCPCS: G0463

== ENCOUNTER → 2018-10-29 | Outpatient (CLI) | payer MEDICARE, MEDICAID | LOC: BHSO 15:25 | DX: R45.851 Suicidal ideations (principal) ==

== ENCOUNTER → 2018-11-04 | Outpatient (CLI) | payer MEDICARE, MEDICAID | LOC: BHSO 13:03 | DX: R45.851 Suicidal ideations (principal) ==

== ENCOUNTER → 2018-11-26 | Outpatient (CLI) | payer MEDICARE, MEDICAID | LOC: BHSO 10:47 | DX: F20.9 Schizophrenia, unspecified (principal) | CPT/HCPCS: G0463 ==

== ENCOUNTER → 2018-12-03 | Outpatient (CLI) | payer MEDICARE, MEDICAID | LOC: BHSO 13:00 | DX: F20.9 Schizophrenia, unspecified (principal) ==

== ENCOUNTER → 2018-12-20 | Outpatient (CLI) | payer MEDICARE, MEDICAID | LOC: BHSO 10:47 | DX: F20.9 Schizophrenia, unspecified (principal) | CPT/HCPCS: G0463 ==

== ENCOUNTER → 2018-12-31 | Outpatient (CLI) | payer MEDICARE, MEDICAID | LOC: BHSO 12:53 | DX: F20.9 Schizophrenia, unspecified (principal) ==

== ENCOUNTER → 2019-02-01 | Outpatient (CLI) | payer MEDICARE, MEDICAID | LOC: BHSO 13:08 | DX: F20.9 Schizophrenia, unspecified (principal) ==

== ENCOUNTER → 2019-02-28 | Outpatient (CLI) | payer MEDICARE, MEDICAID | LOC: BHSO 13:48 | DX: F20.9 Schizophrenia, unspecified (principal) ==

== ENCOUNTER → 2019-03-02 | Emergency (ER) | payer MEDICARE, MEDICAID | LOC: COL.ER 07:18 | DX: F29 Unspecified psychosis not due to a substance or known physiological condition (principal); F20.9 Schizophrenia, unspecified; E11.9 Type 2 diabetes mellitus without complications; F17.220 Nicotine dependence, chewing tobacco, uncomplicated; Z79.84 Long term (current) use of oral hypoglycemic drugs ==

== ENCOUNTER → 2019-03-21 | Outpatient (CLI) | payer MEDICARE, MEDICAID | LOC: BHSO 14:12 | DX: F20.9 Schizophrenia, unspecified (principal) | CPT/HCPCS: G0463 ==

== ENCOUNTER → 2019-03-28 | Outpatient (CLI) | payer MEDICARE, MEDICAID | LOC: BHSO 13:50 | DX: F25.9 Schizoaffective disorder, unspecified (principal) ==

== ENCOUNTER 2019-04-15 14:47 | Emergency (ER) | payer MEDICARE, MEDICAID ==
[~2019-04-15] VITALS: Ht 327.7 cm; Wt 109.1 kg
[2019-04-15 14:50] VITALS: BP 160/73; PULSE 90; TEMP 97.7
[2019-04-15 15:44] LABS: BASO % 0.5 % (0.0-2.0); EOS # 0.2 (0.0-0.7); GRAN # 5.3 (1.4-6.5); GRAN % 66.4 % (42.2-75.2); HEMOGLOBIN 10.7 g/dl (12.5-16.0); LYMPH # 1.6 (1.2-3.4); LYMPH % 19.7 % (20.0-51.0); MEAN CELL VOLUME 83 fl (80.0-100.0); MEAN CORPUSCULAR HEMOGLOBIN 28 pg (27.0-31.0); MEAN CORPUSCULAR HGB CONC 34 g/dl (33.0-37.0); MEAN PLATELET VOLUME 10.8 fl (7.4-10.4); MONO # 0.8 (0.1-0.6); MONO % 10.1 % (1.7-9.3); PLATELET COUNT 293 K/mm3 (130-400); RED BLOOD COUNT 3.83 M/mm3 (4.10-5.30); REDCELL DISTRIBUTION WIDTH-CV 12.6 % (11.5-14.5)
[2019-04-15 15:45] LABS: COLLECTION METHOD CLEAN CATCH
[2019-04-15 15:46] LABS: HEMATOCRIT 31.7 % (37.0-47.0)
[2019-04-15 15:51] LABS: PH 5 (5-8); URINE APPEARANCE Clear; URINE BACTERIA Rare /hpf; URINE BILIRUBIN Negative (NEGATIVE); URINE BLOOD Negative (NEGATIVE); URINE COLOR Straw; URINE GLUCOSE 3+ (NEGATIVE); URINE KETONE Negative (NEGATIVE); URINE LEUKOCYTE ESTERASE 1+ (NEGATIVE); URINE NITRATE Negative (NEGATIVE); URINE PROTEIN(semi-quant) 2+ (NEGATIVE); URINE UROBILINOGEN Negative (NEGATIVE)
[2019-04-15 15:53] LABS: ALANINE AMINOTRANSFERASE < 6 U/L (9-52); ALBUMIN 3.9 gm/dL (3.5-5.0); ALKALINE PHOSPHATASE 102 U/L (50-136); ANION GAP 9 mmol/L (7-16); AST,SGOT 13 U/L (15-37); BILIRUBIN,TOTAL 0.2 mg/dL (0.0-1.0); BLOOD UREA NITROGEN 15 mg/dL (7-17); CALCIUM 8.8 mg/dL (8.4-10.2); CARBON DIOXIDE 26 mmol/L (22-30); CHLORIDE 100 mmol/L (98-107); CREATININE, serum 1.42 (0.52-1.25); GLUCOSE 354 mg/dL (74-106); POTASSIUM 4.1 mmol/L (3.4-5.0); SODIUM 135 mmol/L (137-145); TOTAL PROTEIN 7.4 gm/dL (6.4-8.2)
[2019-04-15 15:54] LABS: ACETAMINOPHEN < 10 ug/mL (10-30); SALICYLATE < 1.0 mg/dL
[2019-04-15 15:55] LABS: ALCOHOL(ethanol),MEDICAL < 10 mg/dL
[2019-04-15 16:11] LABS: TRICYCLIC ANTIDEPRESS URINE NEGATIVE
== END 2019-04-15 17:24 | disposition left against medical advice (07) ==
LOC: COL.ER 14:47
PROVIDERS: Emergency Medicine
DX: E11.9 Type 2 diabetes mellitus without complications (principal); F20.9 Schizophrenia, unspecified; Z79.84 Long term (current) use of oral hypoglycemic drugs
CPT/HCPCS: J1815

== ENCOUNTER → 2019-04-15 | Outpatient (CLI) | payer MEDICARE, MEDICAID | LOC: BHSO 14:06 | DX: F20.9 Schizophrenia, unspecified (principal) | CPT/HCPCS: G0463 ==

== ENCOUNTER → 2019-04-25 | Outpatient (CLI) | payer MEDICARE, MEDICAID | LOC: BHSO 13:48 | DX: F20.9 Schizophrenia, unspecified (principal) ==

== ENCOUNTER → 2019-05-17 | Outpatient (CLI) | payer MEDICARE, MEDICAID | LOC: BHSO 10:32 | DX: F20.9 Schizophrenia, unspecified (principal) ==

== ENCOUNTER → 2019-06-06 | Outpatient (CLI) | payer MEDICARE, MEDICAID | LOC: BHSO 16:02 | DX: F25.0 Schizoaffective disorder, bipolar type (principal) ==

== ENCOUNTER → 2019-06-16 | Outpatient (CLI) | payer MEDICARE, MEDICAID | LOC: BHSO 14:47 | DX: F20.9 Schizophrenia, unspecified (principal) | CPT/HCPCS: G0463 ==

== ENCOUNTER 2019-09-13 16:54 | Emergency (ER) | payer MEDICARE, MEDICAID ==
[~2019-09-13] VITALS: Ht 175.3 cm; Wt 113.6 kg
[2019-09-13 16:57] VITALS: TEMP 97.7
[2019-09-13] MEDS ORDERED: RISPERDAL3 MG PO (17:18)
[2019-09-13] MEDS ORDERED: PROLIX5TA PO (17:19)
[2019-09-13] MEDS ORDERED: NORVASC 10MG10 MG PO (17:19)
[2019-09-13] MEDS ORDERED: KLONOPIN 0.5MG0.5 MG PO (17:19)
[2019-09-13] MEDS ORDERED: LIPITOR 40MG TA40 MG PO (17:20)
[2019-09-13] MEDS ORDERED: COGENTIN 1MG1 MG/TAB PO (17:20)
[2019-09-13 18:04] LABS: BASO % 0.4 % (0.0-2.0); EOS # 0.5 (0.0-0.7); EOS % 4.2 % (0-4.0); GRAN # 7.5 (1.4-6.5); GRAN % 67.9 % (42.2-75.2); MEAN CELL VOLUME 80 fl (80.0-100.0); MEAN CORPUSCULAR HGB CONC 34 g/dl (33.0-37.0); MEAN PLATELET VOLUME 9.4 fl (7.4-10.4); MONO % 9.2 % (1.7-9.3); PLATELET COUNT 260 K/mm3 (130-400); RED BLOOD COUNT 3.25 M/mm3 (4.10-5.30); REDCELL DISTRIBUTION WIDTH-CV 13.3 % (11.5-14.5)
[2019-09-13 18:08] LABS: HEMOGLOBIN 8.9 g/dl (12.5-16.0); MEAN CORPUSCULAR HEMOGLOBIN 27 pg (27.0-31.0)
[2019-09-13 18:18] LABS: ALANINE AMINOTRANSFERASE 21 U/L (9-52); ALBUMIN 3.6 gm/dL (3.5-5.0); ALKALINE PHOSPHATASE 84 U/L (50-136); ANION GAP 12 mmol/L (7-16); AST,SGOT 18 U/L (15-37); BILIRUBIN,TOTAL 0.4 mg/dL (0.0-1.0); BLOOD UREA NITROGEN 10 mg/dL (7-17); CALCIUM 8.2 mg/dL (8.4-10.2); CARBON DIOXIDE 23 mmol/L (22-30); CHLORIDE 94 mmol/L (98-107); CREATININE, serum 1.62 (0.52-1.25); GLUCOSE 73 mg/dL (74-106); POTASSIUM 3.5 mmol/L (3.4-5.0); SODIUM 129 mmol/L (137-145); TOTAL PROTEIN 6.8 gm/dL (6.4-8.2)
[2019-09-13 18:32] LABS: TROPONIN-I < 0.012 ng/mL (0.000-0.035)
[2019-09-13 19:50] VITALS: BP 141/73; PULSE 80
== END 2019-09-13 19:50 | disposition home or self-care (01) ==
LOC: COL.ER 16:54
PROVIDERS: Nurse Practitioner
DX: R07.89 Other chest pain (principal); F20.9 Schizophrenia, unspecified; I10 Essential (primary) hypertension; E11.9 Type 2 diabetes mellitus without complications; F32.9 Major depressive disorder, single episode, unspecified; F17.220 Nicotine dependence, chewing tobacco, uncomplicated; Z79.84 Long term (current) use of oral hypoglycemic drugs

== ENCOUNTER 2019-10-13 01:29 | Inpatient (IN) | payer MEDICARE, MEDICAID ==
[2019-10-13] VITALS (367 sets, daily range): BP systolic 138–152; BP diastolic 71–92; PULSE 81–88; TEMP 97.7–98.6; O2SAT 72–100
[~2019-10-13] VITALS: Ht 175.3 cm; Wt 109.3 kg
[~2019-10-13 01:29] MED LIST changes: +KLONOPIN 0.5MG0.5 MG PO; +LIPITOR 40MG TA40 MG PO; +PROLIX5TA PO
[2019-10-13] MEDS ORDERED: GLUCOTROL 5M5 MG/TAB PO (01:56)
[2019-10-13] MEDS ORDERED: TRULICITY1.5 MG/0.5 SQ (01:57)
[2019-10-13] MEDS ORDERED: HYGROTON 2525 MG/TAB PO (01:57)
[2019-10-13 02:05] LABS: BASO # 0.1 (0.0-0.2); BASO % 0.5 % (0.0-2.0); EOS # 0.3 (0.0-0.7); EOS % 2.4 % (0-4.0); GRAN # 7.9 (1.4-6.5); GRAN % 72.9 % (42.2-75.2); HEMATOCRIT 28.1 % (37.0-47.0); LYMPH # 1.8 (1.2-3.4); LYMPH % 16.7 % (20.0-51.0); MEAN CELL VOLUME 76 fl (80.0-100.0); MEAN CORPUSCULAR HEMOGLOBIN 27 pg (27.0-31.0); MEAN CORPUSCULAR HGB CONC 36 g/dl (33.0-37.0); MONO # 0.8 (0.1-0.6); MONO % 7.3 % (1.7-9.3); PLATELET COUNT 290 K/mm3 (130-400); RED BLOOD COUNT 3.69 M/mm3 (4.10-5.30); REDCELL DISTRIBUTION WIDTH-CV 12.3 % (11.5-14.5)
[2019-10-13 02:16] LABS: ALANINE AMINOTRANSFERASE 15 U/L (4-34); ALBUMIN 4.3 gm/dL (3.5-5.0); ALKALINE PHOSPHATASE 95 U/L (50-136); ANION GAP 12 mmol/L (7-16); AST,SGOT 22 U/L (15-37); BILIRUBIN,TOTAL 0.7 mg/dL (0.0-1.0); BLOOD UREA NITROGEN 11 mg/dL (7-17); CALCIUM 8.8 mg/dL (8.4-10.2); CARBON DIOXIDE 23 mmol/L (22-30); CREATININE, serum 1.31 (0.52-1.25); GLUCOSE 80 mg/dL (74-106); POTASSIUM 3.5 mmol/L (3.4-5.0); TOTAL PROTEIN 7.6 gm/dL (6.4-8.2)
[2019-10-13 02:18] LABS: ACETAMINOPHEN < 10 ug/mL (10-30); ALCOHOL(ethanol),MEDICAL < 10 mg/dL; CHLORIDE 80 mmol/L (98-107); SALICYLATE < 1.0 mg/dL; SODIUM 115 mmol/L (137-145)
[2019-10-13 02:23] LABS: COLLECTION METHOD CLEAN CATCH
[2019-10-13 02:36] LABS: PH 7 (5-8); SQUAMOUS EPITHELIAL 0-2 /hpf; URINE APPEARANCE Clear; URINE BACTERIA None Seen /hpf; URINE BILIRUBIN Negative (NEGATIVE); URINE BLOOD 1+ (NEGATIVE); URINE COLOR Colorless; URINE GLUCOSE Negative (NEGATIVE); URINE KETONE Negative (NEGATIVE); URINE LEUKOCYTE ESTERASE Negative (NEGATIVE); URINE NITRATE Negative (NEGATIVE); URINE PROTEIN(semi-quant) Negative (NEGATIVE); URINE RBC 0-2 /hpf; URINE UROBILINOGEN Negative (NEGATIVE)
[2019-10-13 02:51] LABS: TRICYCLIC ANTIDEPRESS URINE NEGATIVE
[2019-10-13 03:00] LABS: CREATININE, serum 1.31 (0.52-1.25)
[2019-10-13 03:01] LABS: FRACTIONAL EXCRETION OF NA+ 2.9 %
[2019-10-13 04:28] LABS: MAGNESIUM 1.2 mg/dL (1.6-2.3)
--- NOTE | 2019-10-13 04:32 | NUR ---
Report received from Eleuterio KRAMER from ED.
--- NOTE | 2019-10-13 04:45 | NUR ---
Pt arrived via stretcher X1 ED nurse staff assist. Pt was wearing street clothes and was assisted to the toilet, as well as change into hospital gown. Pt requested to keep underwear, bra and shorts on. Pt is cooperative and pleasant although has a flat affect, noted to stare in other parts of the room in between discussions with staff. Makes wants and needs known and has demonstrated ability to use call light. Pt complaints of feeling "cold". Warm blankets were provided. Was unable to verbalize med rec when TIARRA Webb was in the room. Will call daughter at a later time in attempts to get information.
[2019-10-13 05:00] LABS: TSH w REFLEX 1.64 uIU/mL (0.465-4.680)
--- NOTE | 2019-10-13 05:50 | NUR ---
Attempts were made to call delia Thorpe at [phone]. LM leaving pt passcode in order to call back and assist in providing information for medication rec completion.
[2019-10-13 05:52] LABS: CALCIUM 8.7 mg/dL (8.4-10.2); CREATININE, serum 1.3 (0.52-1.25); POTASSIUM 3.8 mmol/L (3.4-5.0)
--- NOTE | 2019-10-13 07:00 | NUR ---
Bedside report received from WILLIAMS Reyes. Patient resting in bed. She has no complaints at this time.
--- NOTE | 2019-10-13 07:10 | NUR ---
Bedside report provided to Tami KRAMER. Pt resting in bed at this time.
[2019-10-13 07:58] LABS: CALCIUM 8.5 mg/dL (8.4-10.2); CREATININE, serum 1.33 (0.52-1.25); POTASSIUM 3.8 mmol/L (3.4-5.0)
[2019-10-13 09:54] LABS: CALCIUM 8.3 mg/dL (8.4-10.2); CREATININE, serum 1.31 (0.52-1.25); POTASSIUM 3.7 mmol/L (3.4-5.0)
--- NOTE | 2019-10-13 10:30 | NUR ---
Patient complains of wanting her can of snuff from her purse. She is educated on the policies for this facility and how we are a tobacco free facility. She states that she wants to talk to the doctor and then she states that she wants to go home. Daughter called to help keep patient agreeable to staying for recommended treatments. Daughter speaks with the patient. Patient agrees to stay for treatment.
--- NOTE | 2019-10-13 12:00 | NUR ---
Patient intermittently hollering out at people that are not in the room. I ask her if she needs anything. She responds with "no"
[2019-10-13 12:28] LABS: CALCIUM 8.5 mg/dL (8.4-10.2); CREATININE, serum 1.35 (0.52-1.25); POTASSIUM 3.9 mmol/L (3.4-5.0)
--- NOTE | 2019-10-13 12:34 | NUR ---
First visit from the client service manager. Dock Operations Supervisor prayed with patient per request. No other needs right now.
--- NOTE | 2019-10-13 14:53 | NUR ---
GHASSAN contacted the patient's daughter, Ila Ballard (ph#[phone]), to discuss discharge plan. The patient lives in [place] with Ila. Ila reports that the patient needs occasional assistance with ADLs and that she does not have any DME. Ila reports that when the patient needs assistance, that she is able to provide that for her. The patient does not receive any home health or personal care services. The patient's PCP is Dr. Lashawn Christianson and she receives her medications at [facility]. Ila reports no difficulties obtaining her meds. The patient does not have advanced directives in EMR. Ila reports that the patient's other daughter, Trupti Ballard, has legal guardianship of the patient. Ila reports that Trupti is stationed in [place] right now. She states that she will email her sister for her to email either her or GHASSAN a copy of the documents. GHASSAN provided Ila with GHASSAN's email address. GHASSAN also contacted the social service technician, Anju, at Dr. Christianson's office to find out it they already have a copy of the documents. Anju reports that they do not. She did provide GHASSAN with Toneyelizabet's phone number, . GHASSAN attempted to contact that number. It states that the person is unavailable and you are unable to leave a voicemail. Ila reports that the patient has a case packer and sealer through [facility] and sees Aranza Beltran APRN at [facility] in [place]. Ila reports that the patient's next appointment at [facility] is 12/29/2019. She reports that she was planning on calling them to get a sooner appointment. At this time, the Ila reports that plan would be for the patient to return back home with her. PT/OT and a psych consult have been ordered. GHASSAN to continue to follow.
--- NOTE | 2019-10-13 15:44 | NUR ---
Patient is very agitated at this time. She wants to go home, continues to try to leave the bed and room. She is continuously asking for her belonging and saying that she is being held against her will. Daughter is contacted and she speak with the patient. Patient calms down briefly and allows staff to help her get back in bed and settled. Daughter reports that the patient dips up to 10 cans of snuff per day. Dr. Christensen notified. Orders received, see eMAR.
[2019-10-13 16:39] LABS: CALCIUM 8.4 mg/dL (8.4-10.2); CREATININE, serum 1.57 (0.52-1.25)
--- NOTE | 2019-10-13 19:37 | NUR ---
BEDSIDE REPORT GIVEN TO WILLIAMS SALAMANCA. PATIENT CURRENTLY SLEEPING IN BED. VS WNL.
[2019-10-13 20:29] LABS: CALCIUM 8.5 mg/dL (8.4-10.2); CREATININE, serum 1.72 (0.52-1.25); POTASSIUM 4.2 mmol/L (3.4-5.0)
--- NOTE | 2019-10-13 21:30 | NUR ---
left forearm CAUSING PAIN WITH EDEMA FOUND AT SITE, THEREFORE STOPPED INFUSION AND REMOVED BANDAGED, IV FLUIDS THEN ADMINISTERING AT AC SITE
[2019-10-14] VITALS (74 sets, daily range): BP systolic 101–143; BP diastolic 58–78; PULSE 76–87; TEMP 97.6–98.4; O2SAT 62–100
--- NOTE | 2019-10-14 01:21 | NUR ---
NEW IV START LEFT HAND 20 G, IV FUILDS MOVED TO THIS SITE, LAC SITE SALINE LOCKED
[2019-10-14 05:33] LABS: BASO % 0.5 % (0.0-2.0); EOS # 0.2 (0.0-0.7); EOS % 2.4 % (0-4.0); GRAN # 5.7 (1.4-6.5); GRAN % 66.7 % (42.2-75.2); LYMPH # 1.8 (1.2-3.4); LYMPH % 20.8 % (20.0-51.0); MEAN CELL VOLUME 77 fl (80.0-100.0); MEAN CORPUSCULAR HGB CONC 35 g/dl (33.0-37.0); MEAN PLATELET VOLUME 9.1 fl (7.4-10.4); MONO # 0.8 (0.1-0.6); MONO % 9.4 % (1.7-9.3); PLATELET COUNT 304 K/mm3 (130-400); REDCELL DISTRIBUTION WIDTH-CV 12.8 % (11.5-14.5)
[2019-10-14 05:38] LABS: HEMATOCRIT 26.1 % (37.0-47.0); HEMOGLOBIN 9.2 g/dl (12.5-16.0); MEAN CORPUSCULAR HEMOGLOBIN 27 pg (27.0-31.0)
[2019-10-14 05:41] LABS: CALCIUM 8.2 mg/dL (8.4-10.2); CREATININE, serum 1.99 (0.52-1.25); MAGNESIUM 2.3 mg/dL (1.6-2.3); POTASSIUM 4.3 mmol/L (3.4-5.0)
--- NOTE | 2019-10-14 10:42 | NUR ---
Pt yelling, asking for shoes and clothes, wants to leave AMA, call placed to daughter as patient was admitted for hallucinations and is still making comments that indicate some ongoing confusion. "It's not my blood that's low, my gave me all of his blood."
--- NOTE | 2019-10-14 11:44 | NUR ---
Sitting in bed wearing street clothes. Pt refusing to change back into gown, be connected to monitor, or allow staff to provide any care. She is no longer attempting to physically leave the room. Yelling only when talked to, RN is allowing patient to calm and maintaining line of sight for deterioration of medical condition.
--- NOTE | 2019-10-14 12:13 | NUR ---
Patient talking to daughter from [place] on speakerphone. Daugther telling patient she agrees with Doctor that patient should stay in hospital to receive treatment. Patient states this daughter is her guardian.
--- NOTE | 2019-10-14 13:28 | NUR ---
SW received the guardian paperwork for the patient. Placed it in the chart and informed the nurse. The guardian is Trupti Ballard, she is in the [employer] and at this time stationed in [place]. Her email is [email or web address]. Trupti's phone number is ([phone] (country code) [phone]).
--- NOTE | 2019-10-14 15:28 | NUR ---
A psychiatric consult was ordered for the patient on 10/12. Will continue to monitor.
[2019-10-14 16:09] LABS: CALCIUM 8.3 mg/dL (8.4-10.2); CREATININE, serum 2.49 (0.52-1.25); POTASSIUM 4.3 mmol/L (3.4-5.0)
--- NOTE | 2019-10-14 17:51 | NUR ---
Pt has agreed to remain in the hospital, but has fjofywdn-rzppetutjynk-zo receive a PICC line despite multiple explanations towards its benefit in reduction of future sticks for lab and peripheral access attempts. Dr Christensen aware of no IV.
[2019-10-14 21:14] LABS: CALCIUM 8.4 mg/dL (8.4-10.2); CREATININE, serum 2.29 (0.52-1.25); POTASSIUM 4.4 mmol/L (3.4-5.0)
--- NOTE | 2019-10-14 23:30 | NUR ---
Brittany called about sodium level at 2300, received call back at 2330 with no change in orders at this time. Patient sleeping in bed, will use call light for assistance but takes self to toilet. Cooperative and oriented at this time.
[2019-10-15] VITALS (17 sets, daily range): BP systolic 116–150; BP diastolic 66–75; PULSE 84–87; TEMP 97.8–98.5; O2SAT 77–100
[2019-10-15 06:10] LABS: BASO # 0.1 (0.0-0.2); BASO % 0.6 % (0.0-2.0); EOS # 0.3 (0.0-0.7); EOS % 3.2 % (0-4.0); GRAN # 6.2 (1.4-6.5); GRAN % 68.3 % (42.2-75.2); LYMPH # 1.6 (1.2-3.4); LYMPH % 18.1 % (20.0-51.0); MEAN CELL VOLUME 80 fl (80.0-100.0); MEAN CORPUSCULAR HGB CONC 35 g/dl (33.0-37.0); MEAN PLATELET VOLUME 9.3 fl (7.4-10.4); MONO # 0.9 (0.1-0.6); MONO % 9.7 % (1.7-9.3); PLATELET COUNT 331 K/mm3 (130-400); RED BLOOD COUNT 3.33 M/mm3 (4.10-5.30); REDCELL DISTRIBUTION WIDTH-CV 13.2 % (11.5-14.5)
[2019-10-15 06:12] LABS: HEMATOCRIT 26.5 % (37.0-47.0); HEMOGLOBIN 9.3 g/dl (12.5-16.0); MEAN CORPUSCULAR HEMOGLOBIN 28 pg (27.0-31.0)
[2019-10-15 06:22] LABS: CALCIUM 8.5 mg/dL (8.4-10.2); CREATININE, serum 1.98 (0.52-1.25); POTASSIUM 4.9 mmol/L (3.4-5.0)
--- NOTE | 2019-10-15 07:14 | NUR ---
Report received from Stephen RN and care resumed.
[2019-10-15] MEDS ORDERED: LASIX 20MG TABL20 MG PO (10:45)
--- NOTE | 2019-10-15 11:24 | NUR ---
Attempted to call pt's daughter Ila regarding discharge and tack picker. No answer and unable to leave message.
--- NOTE | 2019-10-15 12:33 | NUR ---
Pt walked out for discharge at this time but refused to sign discharge papers or go over them.
== END 2019-10-15 12:30 | disposition home or self-care (01) | DRG 641 ==
LOC: COL.ER 01:29 → ICU 03:37
PROVIDERS: Emergency Medicine; Hospitalist; Internal Medicine Nephrology; Nurse Practitioner Family; ADMIT Student in an Organized Health Care Education/Training Program
DX: E87.1 Hypo-osmolality and hyponatremia (principal); N17.9 Acute kidney failure, unspecified; F29 Unspecified psychosis not due to a substance or known physiological condition; I12.9 Hypertensive chronic kidney disease with stage 1 through stage 4 chronic kidney disease, or unspecified chronic kidney disease; E11.22 Type 2 diabetes mellitus with diabetic chronic kidney disease; E11.649 Type 2 diabetes mellitus with hypoglycemia without coma; N18.3 Chronic kidney disease, stage 3 (moderate); D63.1 Anemia in chronic kidney disease; D50.9 Iron deficiency anemia, unspecified; E66.9 Obesity, unspecified; R26.9 Unspecified abnormalities of gait and mobility; F17.290 Nicotine dependence, other tobacco product, uncomplicated; E83.42 Hypomagnesemia; D72.829 Elevated white blood cell count, unspecified; Z68.37 Body mass index [BMI] 37.0-37.9, adult; Z86.711 Personal history of pulmonary embolism
CPT/HCPCS: 99222-AI; 99233-AI; 99239; C1751; J1630; J1650; J3475; J7131

== ENCOUNTER 2019-11-22 21:45 | Emergency (ER) | payer MEDICARE, MEDICAID ==
[~2019-11-22] VITALS: Ht 175.3 cm; Wt 109.1 kg
[~2019-11-22 21:45] MED LIST changes: +HYGROTON 2525 MG/TAB PO; +TRULICITY1.5 MG/0.5 SQ
[2019-11-22 21:47] VITALS: TEMP 97.3
[2019-11-22 22:07] LABS: BASO % 0.3 % (0.0-2.0); EOS # 0.3 (0.0-0.7); EOS % 3.2 % (0-4.0); GRAN # 6.6 (1.4-6.5); GRAN % 73.7 % (42.2-75.2); HEMOGLOBIN 10.6 g/dl (12.5-16.0); LYMPH # 1.5 (1.2-3.4); LYMPH % 16.9 % (20.0-51.0); MEAN CELL VOLUME 81 fl (80.0-100.0); MEAN CORPUSCULAR HEMOGLOBIN 27 pg (27.0-31.0); MEAN CORPUSCULAR HGB CONC 33 g/dl (33.0-37.0); MEAN PLATELET VOLUME 9.3 fl (7.4-10.4); MONO # 0.5 (0.1-0.6); MONO % 5.7 % (1.7-9.3); PLATELET COUNT 292 K/mm3 (130-400); RED BLOOD COUNT 3.92 M/mm3 (4.10-5.30); REDCELL DISTRIBUTION WIDTH-CV 13.1 % (11.5-14.5)
[2019-11-22 22:08] LABS: HEMATOCRIT 31.7 % (37.0-47.0)
[2019-11-22 22:27] LABS: ALANINE AMINOTRANSFERASE 16 U/L (4-34); ALBUMIN 4.4 gm/dL (3.5-5.0); ALKALINE PHOSPHATASE 100 U/L (50-136); ANION GAP 12 mmol/L (7-16); AST,SGOT 18 U/L (15-37); BILIRUBIN,TOTAL 0.4 mg/dL (0.0-1.0); BLOOD UREA NITROGEN 29 mg/dL (7-17); CALCIUM 9.8 mg/dL (8.4-10.2); CARBON DIOXIDE 22 mmol/L (22-30); CHLORIDE 100 mmol/L (98-107); CREATININE, serum 3.21 (0.52-1.25); GLUCOSE 90 mg/dL (74-106); LIPASE 132 U/L (23-300); POTASSIUM 4.8 mmol/L (3.4-5.0); SODIUM 134 mmol/L (137-145)
[2019-11-22 22:38] LABS: TROPONIN-I < 0.012 ng/mL (0.000-0.035)
[2019-11-22 23:20] VITALS: BP 136/66; PULSE 93
== END 2019-11-22 23:20 | disposition left against medical advice (07) ==
LOC: COL.ER 21:45
PROVIDERS: Emergency Medicine
DX: N28.9 Disorder of kidney and ureter, unspecified (principal); R53.1 Weakness; I12.9 Hypertensive chronic kidney disease with stage 1 through stage 4 chronic kidney disease, or unspecified chronic kidney disease; E11.22 Type 2 diabetes mellitus with diabetic chronic kidney disease; E66.9 Obesity, unspecified; F20.9 Schizophrenia, unspecified; F17.220 Nicotine dependence, chewing tobacco, uncomplicated; Z79.84 Long term (current) use of oral hypoglycemic drugs; Z98.51 Tubal ligation status; Z68.35 Body mass index [BMI] 35.0-35.9, adult
CPT/HCPCS: J2405; J7030

== ENCOUNTER 2019-12-21 13:23 | Inpatient (IN) | payer MEDICARE, MEDICAID ==
[~2019-12-21] VITALS: Ht 175.3 cm; Wt 90.9 kg
[2019-12-21 13:26] VITALS: TEMP 98.1
[2019-12-21 13:47] LABS: BASO % 0.2 % (0.0-2.0); EOS # 0.1 (0.0-0.7); EOS % 1.3 % (0-4.0); GRAN # 8.1 (1.4-6.5); GRAN % 82.5 % (42.2-75.2); HEMOGLOBIN 10.2 g/dl (12.5-16.0); LYMPH # 1.1 (1.2-3.4); MEAN CELL VOLUME 80 fl (80.0-100.0); MEAN CORPUSCULAR HEMOGLOBIN 27 pg (27.0-31.0); MEAN CORPUSCULAR HGB CONC 34 g/dl (33.0-37.0); MEAN PLATELET VOLUME 9.5 fl (7.4-10.4); MONO # 0.5 (0.1-0.6); MONO % 4.8 % (1.7-9.3); PLATELET COUNT 289 K/mm3 (130-400); RED BLOOD COUNT 3.75 M/mm3 (4.10-5.30); REDCELL DISTRIBUTION WIDTH-CV 13.1 % (11.5-14.5)
[2019-12-21 13:48] LABS: HEMATOCRIT 29.8 % (37.0-47.0)
[2019-12-21 14:00] LABS: ALBUMIN 4.2 gm/dL (3.5-5.0); BILIRUBIN,TOTAL 0.5 mg/dL (0.0-1.0); CALCIUM 9.2 mg/dL (8.4-10.2); CREATININE, serum 2.47 (0.52-1.25); POTASSIUM 4.2 mmol/L (3.4-5.0); TOTAL PROTEIN 8.1 gm/dL (6.4-8.2)
[2019-12-21 14:54] LABS: MAGNESIUM 1.6 mg/dL (1.6-2.3)
[2019-12-21 14:56] LABS: ACETAMINOPHEN < 10 ug/mL (10-30); ALCOHOL(ethanol),MEDICAL < 10 mg/dL
[2019-12-21 17:29] VITALS: BP 124/46; PULSE 81
== END 2019-12-21 16:00 | disposition left against medical advice (07) | DRG 885 ==
LOC: COL.ER 13:23 → MEDICAL 15:14
PROVIDERS: Emergency Medicine; ADMIT Hospitalist
DX: F20.0 Paranoid schizophrenia (principal); E87.1 Hypo-osmolality and hyponatremia; N17.9 Acute kidney failure, unspecified; E11.649 Type 2 diabetes mellitus with hypoglycemia without coma; E66.9 Obesity, unspecified; E11.22 Type 2 diabetes mellitus with diabetic chronic kidney disease; I12.9 Hypertensive chronic kidney disease with stage 1 through stage 4 chronic kidney disease, or unspecified chronic kidney disease; E86.0 Dehydration; Z53.29 Procedure and treatment not carried out because of patient's decision for other reasons; F17.200 Nicotine dependence, unspecified, uncomplicated; E87.8 Other disorders of electrolyte and fluid balance, not elsewhere classified; W19.XXXA Unspecified fall, initial encounter; D64.9 Anemia, unspecified; Z91.14 Patient's other noncompliance with medication regimen; I25.2 Old myocardial infarction
CPT/HCPCS: 99222-AI

== ENCOUNTER 2019-12-22 22:03 | Inpatient (IN) | payer MEDICARE, MEDICAID ==
[~2019-12-22] VITALS: Ht 175.3 cm; Wt 104.4 kg
[~2019-12-22 22:03] MED LIST changes: -DESYREL 100MG100 MG PO; +DESYREL DIVIDO150 M1 PO
[2019-12-22 22:40] LABS: BASO % 0.2 % (0.0-2.0); EOS # 0.3 (0.0-0.7); EOS % 3.8 % (0-4.0); GRAN # 5.9 (1.4-6.5); GRAN % 71.4 % (42.2-75.2); LYMPH # 1.3 (1.2-3.4); LYMPH % 15.9 % (20.0-51.0); MEAN CELL VOLUME 78 fl (80.0-100.0); MEAN CORPUSCULAR HGB CONC 35 g/dl (33.0-37.0); MEAN PLATELET VOLUME 9.2 fl (7.4-10.4); MONO # 0.7 (0.1-0.6); MONO % 8.3 % (1.7-9.3); PLATELET COUNT 259 K/mm3 (130-400); RED BLOOD COUNT 3.26 M/mm3 (4.10-5.30); REDCELL DISTRIBUTION WIDTH-CV 12.8 % (11.5-14.5)
[2019-12-22 22:41] LABS: HEMATOCRIT 25.4 % (37.0-47.0); HEMOGLOBIN 8.9 g/dl (12.5-16.0); MEAN CORPUSCULAR HEMOGLOBIN 27 pg (27.0-31.0)
[2019-12-22 22:50] LABS: ALBUMIN 3.6 gm/dL (3.5-5.0); BILIRUBIN,TOTAL 0.3 mg/dL (0.0-1.0); CALCIUM 8.2 mg/dL (8.4-10.2); CREATININE, serum 2.2 (0.52-1.25); MAGNESIUM 1.6 mg/dL (1.6-2.3); POTASSIUM 4.3 mmol/L (3.4-5.0); TOTAL PROTEIN 6.8 gm/dL (6.4-8.2)
[2019-12-23] VITALS (615 sets, daily range): BP systolic 109–131; BP diastolic 64–76; PULSE 85–92; TEMP 97.4–98.6; O2SAT 95–100
[2019-12-23 02:22] LABS: CREATININE, serum 1.96 (0.52-1.25); POTASSIUM 4.2 mmol/L (3.4-5.0)
--- NOTE | 2019-12-23 02:30 | NUR ---
0032 - REPORT RECEIVED FROM WILLIAMS BLUNT. 0041 - PT ARRIVED IN UNIT, ABLE TO TRANSFER SELF FROM STRETCHER TO BED WITH STANBY ASSIST, ALERT AND ORIENTED X4, VS WNL AND ON ROOM AIR. PT DENIES ANY PAIN OR SOB. PT HAD AN EPISODE OF VERY LOOSE/WATERY DIARRHEA, AND DR. FLORES NOTIFIED AND ORDERED GI PANEL. 0121 - DR. FLORES CALLED AND MADE AWARE OF PT'S ARRIVAL.
--- NOTE | 2019-12-23 02:37 | NUR ---
PT'S SODIUM LEVEL AT 119 BUT TRENDING UP. PT ON NS AT 150 ML/HR, BMP EVERY [address] FLORES NOT NOTIFIED HE'S ALREADY AWARE.
[2019-12-23 05:48] LABS: CREATININE, serum 1.92 (0.52-1.25); POTASSIUM 4.3 mmol/L (3.4-5.0)
[2019-12-23 08:55] LABS: CREATININE, serum 1.89 (0.52-1.25); POTASSIUM 4.2 mmol/L (3.4-5.0)
[2019-12-23 11:21] LABS: MAGNESIUM 1.6 mg/dL (1.6-2.3); PHOSPHOROUS 3.6 mg/dL (2.5-4.5)
[2019-12-23] MEDS ORDERED: LASIX 20MG TABL20 MG PO (12:01)
[2019-12-23] MEDS ORDERED: PRINIVIL10 MG PO (12:02)
[2019-12-23] MEDS ORDERED: HYGROTON 2525 MG/TAB PO (12:03)
[2019-12-23] MEDS ORDERED: PRILOSEC 20MG20 MG PO (12:04)
[2019-12-23] MEDS ORDERED: NORVASC 10MG10 MG PO (12:04)
--- NOTE | 2019-12-23 14:11 | NUR ---
Painter Plate met with patient to discuss discharge planning. Patient has some difficulty staying awake but gives short answers to questions. Patient lives with her daughter, Ila (ph#[phone]) and sees Dr. Christianson for primary care. Patient has medications delivered to her home by [facility]. Patient states she uses a walker at home. Patient states she has a home health care case manager at [facility] named Toribio. Patient states she plans to go home at discharge. GHASSAN contacted Juan Antonio Rooney CM who reports patient receives peer support from [facility] and was in groups prior to [facility]. Toribio reports groups should be starting back up next week. Toribio confirmed that patient lives at home with her daughter lIa and that her other daughter, Trupti is patient's legal guardian. Trupti is currently deployed in [place] but Toribio advised that she should be back January 10. GHASSAN contacted patient's daughter, Ila who states patient uses her walker and gets around okay but occasionally has some difficulty. Crystal states patient has a shower chair that allows her to bathe independently. Ila reports patient sees Dr. Resendiz, Psychiatrist at [facility] in [place] which is who prescribes patient's medications. Ila states patient takes her medications as prescribed and that she helps make sure patient takes them on time. GHASSAN contacted Medical Records to obtain copy of guardianship paperwork and placed copy on patient's chart. GHASSAN contacted RUPERTO Liriano at [facility] and left a message. SW to continue to follow.
--- NOTE | 2019-12-23 15:08 | NUR ---
Numerical Control Programmer spoke with WILLIAMS Odonnell-CM who reports patient was seen yesterday by her PCP. Per Belle, it was recommended patient go to the ED but refused. Belle advised patient has an appointment scheduled also for Thursday. Belle states it doesn't look like patient has a follow up appointment scheduled with Dr. Resendiz at this time but this might be beneficial for patient. SW to continue to follow.
[2019-12-23 16:55] LABS: COLLECTION METHOD CLEAN CATCH
[2019-12-23 17:09] LABS: CALCIUM 7.8 mg/dL (8.4-10.2); CREATININE, serum 1.82 (0.52-1.25)
[2019-12-23 17:11] LABS: AMORPHOUS CRYSTAL Present /uL; PH 6 (5-8); URINE APPEARANCE Hazy; URINE BACTERIA Rare /hpf; URINE BILIRUBIN Negative (NEGATIVE); URINE BLOOD Negative (NEGATIVE); URINE COLOR Straw; URINE GLUCOSE Negative (NEGATIVE); URINE KETONE Negative (NEGATIVE); URINE LEUKOCYTE ESTERASE Negative (NEGATIVE); URINE NITRATE Negative (NEGATIVE); URINE PROTEIN(semi-quant) Negative (NEGATIVE); URINE RBC 0-2 /hpf; URINE UROBILINOGEN Negative (NEGATIVE)
--- NOTE | 2019-12-23 23:12 | NUR ---
PT RESTING IN BED, DENIES PAIN, DOA, OR DISCOMFORT. VSS AT THIS TIME. PT ANSWERS QUESTIONS APPROPRIATELY, BUT PERIODICALLY TALKS TO HERSELF. PT STANDBY ASSIST WITH UNSTEADY GAIT. WILL CONTINUE TO MONITOR PT STATUS AND UPDATE PROVIDERS NEEDED.
[2019-12-24] VITALS (217 sets, daily range): BP systolic 114–135; BP diastolic 63–101; PULSE 80–83; TEMP 99; O2SAT 91–100
[2019-12-24 05:49] LABS: BASO % 0.6 % (0.0-2.0); EOS # 0.3 (0.0-0.7); EOS % 4.7 % (0-4.0); LYMPH # 2.1 (1.2-3.4); MEAN CELL VOLUME 80 fl (80.0-100.0); MEAN CORPUSCULAR HGB CONC 34 g/dl (33.0-37.0); MEAN PLATELET VOLUME 9.1 fl (7.4-10.4); MONO # 0.8 (0.1-0.6); MONO % 10.6 % (1.7-9.3); PLATELET COUNT 298 K/mm3 (130-400); REDCELL DISTRIBUTION WIDTH-CV 13.2 % (11.5-14.5)
[2019-12-24 05:59] LABS: HEMATOCRIT 24.9 % (37.0-47.0); HEMOGLOBIN 8.5 g/dl (12.5-16.0); MEAN CORPUSCULAR HEMOGLOBIN 27 pg (27.0-31.0)
[2019-12-24 06:01] LABS: CREATININE, serum 1.83 (0.52-1.25); MAGNESIUM 1.9 mg/dL (1.6-2.3); POTASSIUM 4.9 mmol/L (3.4-5.0)
--- NOTE | 2019-12-24 12:10 | NUR ---
Pt discharged home. Discharge instructions discussed with Pt and all questions answered. No new medications started. IV dc'd. Pt wheeled out for discharge and taken home by granddaughter.
== END 2019-12-24 12:04 | disposition home or self-care (01) | DRG 638 ==
LOC: COL.ER 22:03 → IMCU 23:03
PROVIDERS: Emergency Medicine; Hospitalist; ADMIT Student in an Organized Health Care Education/Training Program
DX: E11.649 Type 2 diabetes mellitus with hypoglycemia without coma (principal); F20.0 Paranoid schizophrenia; E87.1 Hypo-osmolality and hyponatremia; E11.22 Type 2 diabetes mellitus with diabetic chronic kidney disease; I12.9 Hypertensive chronic kidney disease with stage 1 through stage 4 chronic kidney disease, or unspecified chronic kidney disease; E87.8 Other disorders of electrolyte and fluid balance, not elsewhere classified; N17.9 Acute kidney failure, unspecified; W19.XXXA Unspecified fall, initial encounter; E83.42 Hypomagnesemia; E66.9 Obesity, unspecified; D50.9 Iron deficiency anemia, unspecified; E78.5 Hyperlipidemia, unspecified; F17.200 Nicotine dependence, unspecified, uncomplicated; N18.9 Chronic kidney disease, unspecified; Z86.711 Personal history of pulmonary embolism; Z98.51 Tubal ligation status; I25.2 Old myocardial infarction; Z91.14 Patient's other noncompliance with medication regimen; Z68.32 Body mass index [BMI] 32.0-32.9, adult
CPT/HCPCS: 99223-AI; 99239; J1650; J3475; J7030

== ENCOUNTER 2020-01-05 15:45 | Outpatient (RCR) | payer MEDICARE, MEDICAID ==
[~2020-01-05 15:45] MED LIST changes: +PRILOSEC 20MG20 MG PO; +PRINIVIL10 MG PO
== END 2020-02-29 | disposition home or self-care (01) ==
LOC: MKS.ESL.PT
DX: R26.9 Unspecified abnormalities of gait and mobility (principal)